=== PATIENT | female | born 1965 | race Two or more races ===

== ENCOUNTER 2020-01-01 10:06 | Outpatient (REF) | payer MEDICAID, SELFPAY | END 2020-01-01 10:07 | disposition home or self-care (01) | LOC: HO.LAB 10:06 | PROVIDERS: PCP Internal Medicine; Referring Provider Internal Medicine; Visit Provider Obstetrics & Gynecology | DX: N95.0 Postmenopausal bleeding (principal) | CPT/HCPCS: 81025; 88305 ==

== ENCOUNTER 2020-03-11 13:32 | Outpatient (REF) | payer MEDICAID, SELFPAY ==
--- NOTE | 2020-03-11 13:36 | US_ITS ---
EXAMINATION: US PELVIC COMPLETE US TRANSVAGINAL CLINICAL INFORMATION: Complex ovarian cyst. COMPARISON: None TECHNIQUE: Transabdominal and transvaginal ultrasound of the pelvis is performed. FINDINGS: The uterus is anteverted and anteflexed measuring 12.1 cm in length, 5.7 cm in AP, and 5.6 cm in transverse dimension. Endometrial thickness measures 0.9 cm. The uterus is slightly heterogenous but no focal lesion seen. There are small nabothian cysts seen in the cervix. The right ovary measures 2.2 x 3.2 x 1.4 cm and volume 5.2 mL. The left ovary measures 3.8 x 3.5 x 1.7 cm and volume 11.9 mL. There is a small anechoic cyst measuring 3.6 x 1.9 x 2.9 cm. There is an echogenic foci measuring 0.29 cm. There is no free fluid in the cul-de-sac. US/US transvaginal IMPRESSION: Heterogenous-appearing uterus with no focal lesion seen. Small echogenic foci and a small cyst left ovary. The right ovary is unremarkable. Several nabothian cysts in the cervix.
--- NOTE | 2020-03-11 13:36 | US_ITS ---
EXAMINATION: US PELVIC COMPLETE US TRANSVAGINAL CLINICAL INFORMATION: Complex ovarian cyst. COMPARISON: None TECHNIQUE: Transabdominal and transvaginal ultrasound of the pelvis is performed. FINDINGS: The uterus is anteverted and anteflexed measuring 12.1 cm in length, 5.7 cm in AP, and 5.6 cm in transverse dimension. Endometrial thickness measures 0.9 cm. The uterus is slightly heterogenous but no focal lesion seen. There are small nabothian cysts seen in the cervix. The right ovary measures 2.2 x 3.2 x 1.4 cm and volume 5.2 mL. The left ovary measures 3.8 x 3.5 x 1.7 cm and volume 11.9 mL. There is a small anechoic cyst measuring 3.6 x 1.9 x 2.9 cm. There is an echogenic foci measuring 0.29 cm. There is no free fluid in the cul-de-sac. US/US pelvic complete IMPRESSION: Heterogenous-appearing uterus with no focal lesion seen. Small echogenic foci and a small cyst left ovary. The right ovary is unremarkable. Several nabothian cysts in the cervix.
== END 2020-03-11 13:33 | disposition home or self-care (01) ==
LOC: HO.US 13:32
PROVIDERS: Visit Provider Obstetrics & Gynecology
DX: N83.299 Other ovarian cyst, unspecified side (principal)
CPT/HCPCS: 76830; 76856

== ENCOUNTER → 2020-04-07 12:14 | Outpatient (BNVA) | payer MEDICAID, SELFPAY | PROVIDERS: Visit Provider Obstetrics & Gynecology ==

== ENCOUNTER 2020-06-16 10:36 | Emergency (ER) | payer MEDICAID, SELFPAY ==
[2020-06-16 11:17] VITALS: BP 158/80; PULSE 72; RESP 18; TEMP 36.6; O2SAT 99; BMI 30.4
[2020-06-16 12:01] LABS: MANUAL DIFF FLAG NO
[2020-06-16 12:03] LABS: Basophils Percent Auto 0.5 % (0-2); Eosinophils Absolute Auto 0.1 X10*3/uL (0.0-0.4); Eosinophils Percent Auto 2.5 % (0-4); Hematocrit 40.6 % (37-47); Hemoglobin 12.4 g/dl (12.0-16.0); Imm Gran Abs Auto 0.01 X10*3/uL (0.00-0.03); Imm Gran Pct Auto 0.2 % (0.0-0.4); Lymphocytes Absolute Auto 1.8 X10*3/uL (1.2-4.9); Lymphocytes Percent Auto 32.3 % (20-40); Mean Corpuscular HGB Conc 30.5 g/dl (31.0-35.0); Mean Corpuscular Hemoglobin 24.4 pg (27.0-33.0); Mean Corpuscular Volume 79.9 fL (80-98); Mean Platelet Volume 10.5 fL (9.4-12.3); Monocytes Absolute Auto 0.4 X10*3/uL (0.1-1.2); Monocytes Percent Auto 7.7 % (2-11); Neutrophils Absolute Auto 3.2 X10*3/uL (2.0-8.3); Neutrophils Percent Auto 56.8 % (45-73); Platelet Count 209 X10*3/uL (160-400); Red Blood Count 5.08 X10*6/uL (4.20-5.50); Red Cell Distribution Width 22.5 % (11.0-16.0); White Blood Count 5.7 X10*3/uL (4.8-10.8)
[2020-06-16 12:39] LABS: Alanine Aminotransferase 27 U/L (0-31); Albumin Level 3.9 g/dL (3.5-5.0); Alkaline Phosphatase 90 U/L (39-117); Anion Gap 11 (12-20); Aspartate Amino Transferase 30 U/L (5-31); Bilirubin Total 0.5 mg/dL (0.0-1.0); Blood Urea Nitrogen 14 mg/dL (9-16); Calcium 9.3 mg/dL (8.4-10.2); Carbon Dioxide 27 mmol/L (22-29); Chloride 106 mmol/L (96-108); Creatinine Clr Calc Pharmacy 78.5; Estimated Glomerular Filt Rate > 60; Glucose Random 103 mg/dL (60-115); Potassium 4.7 mmol/L (3.3-5.1); Sodium 139 mmol/L (135-145); Total Protein 6.7 g/dL (6.5-8.0)
[2020-06-16 12:51] LABS: Glucose Urine UA NEG (NEG); Leukocyte Esterase Urine NEG (NEG); Nitrite Urine NEG (NEG); PH 5.5 (5.0-8.0); Specific Gravity - Urine >= 1.030 (1.005-1.025); Urine Blood NEG (NEG); Urine Ketones NEG (NEG); Urine Protein NEG (NEG-TRACE)
[2020-06-16 12:55] LABS: Color Urine YELLOW
[2020-06-16 12:56] LABS: Appearance Urine CLEAR
--- NOTE | 2020-06-16 14:31 | ED.ABDPAIN ---
HPI - Abdominal Pain General Chief Complaint: Abdominal Pain Stated Complaint: lower abd pain Time Seen by Provider: 06/16/20 14:28 Source: patient, family and educational interpreter Mode of arrival: ambulatory Limitations: no limitations History of Present Illness HPI narrative: 54 yo female with arthritis and known ovarian cyst as well as uterine prolapse notes the prolapse has worsened recently and she has more pelvic pressure MD elicited complaint: other (pelvic pressure) Pertinent past history: none Onset (ago): month(s) Pain Consistency: intermittent Location: pelvis Severity: mild Quality: aching and fullness Radiation: none Migration to: no migration Exacerbating factors: bowel movement Relieving factors: nothing Associated symptoms: denies other symptoms Related Data Home Medications Medication Instructions Recorded Confirmed amitriptyline 25 mg tablet 25 mg PO BEDTIME 01/01/20 01/09/20 fluticasone propionate 50 1 spray INTRANASAL BID 01/01/20 01/09/20 mcg/actuation nasal spray,suspension loratadine 10 mg capsule 10 mg PO DAILY 01/01/20 01/09/20 multivitamin 1 cap PO DAILY 01/01/20 01/09/20 Previous Rx's Medication Instructions Recorded hydrocodone-acetaminophen 1 tab PO Q6H PRN #12 tab 06/16/20 ondansetron 4 mg PO Q8H PRN #20 tab 06/16/20 Allergies Allergy/AdvReac Type Severity Reaction Status Date / Time tramadol AdvReac Unknown vomiting Verified 01/09/20 12:06 Seasonal Allergeries Allergy Unknown sneezing Uncoded 01/09/20 12:06 Review of Systems Review of Systems Constitutional : No Weight loss, No Fever, No Chills ENT/Mouth : No sore throat, No Rhinorrhea Eyes: No Swelling, No Redness Cardiovascular : No Chest Pain, No SOB, NoEdema Respiratory : No Cough, No Sputum, No Wheezing Gastrointestinal : no Nausea, no Vomiting, no Diarrhea, no abdominal Pain, No Hematochezia, No Melena Genitourinary : No Dysuria, No Urinary Frequency, No Hematuria, No Urgency, pos vaginal pressure, pos bump felt in vaginal area Musculoskeletal : No joint pain, No Myalgias, No Joint Swelling Skin : No Skin Lesions, No rash Neuro : No Weakness, No Numbness, No Dizziness, No Headache Psych : No Anxiety/Panic, No Depression All other systems reviewed and are negative. Physical Exam Vital Signs: Vital Signs: Last Vital Signs Temp 97.8 F 06/16/20 11:17 Pulse 72 06/16/20 11:17 Resp 18 06/16/20 11:17 BP 158/80 H 06/16/20 11:17 Pulse Ox 99 06/16/20 11:17 Body Mass Index 30.4 Appearance: Alert. Oriented X3. No acute distress. Eyes: Pupils equal, round and reactive to light. ENT: Pharynx normal. Neck: Normal inspection. Neck supple. CVS: Normal heart rate and rhythm. Pulses normal. Respiratory: No respiratory distress. Breath sounds normal. Abdomen: Soft and nontender. : uterine prolapse noted mild with coughing and pressure Skin: Skin warm and dry. Normal skin color. Normal skin turgor. Extremities: No lower extremity edema. No calf ttp Neuro: Oriented X 3. No motor deficit. No sensory deficit. MDM - Abdominal Pain MDM Narrative Medical decision making narrative: 54 yo female with lower vaginal pressure from known uterine prolapse, c/o dysuria, labs and UA negative, exam only prolapse noted when she coughs or uses pressure, abdomen is benign - pain control and refer to OBGYN Lab Data Result diagrams: 06/16/20 11:57 06/16/20 11:57 Labs: Lab Results 06/16/20 06/16/20 06/16/20 Range/Units 11:57 11:57 11:57 WBC 5.7 (4.8-10.8) X10*3/uL RBC 5.08 (4.20-5.50) X10*6/uL Hgb 12.4 (12.0-16.0) g/dl Hct 40.6 (37-47) % MCV 79.9 L (80-98) fL MCH 24.4 L (27.0-33.0) pg MCHC 30.5 L (31.0-35.0) g/dl RDW 22.5 H (11.0-16.0) % Plt Count 209 (160-400) X10*3/uL MPV 10.5 (9.4-12.3) fL Immature Gran % (Auto) 0.2 (0.0-0.4) % Neut % (Auto) 56.8 (45-73) % Lymph % (Auto) 32.3 (20-40) % [place] % (Auto) 7.7 (2-11) % Eos % (Auto) 2.5 (0-4) % Baso % (Auto) 0.5 (0-2) % Lymph # (Auto) 1.8 (1.2-4.9) X10*3/uL [place] # (Auto) 0.4 (0.1-1.2) X10*3/uL Eos # (Auto) 0.1 (0.0-0.4) X10*3/uL Baso # (Auto) 0.0 (0.0-0.2) X10*3/uL Abs Immat Gran (auto) 0.01 (0.00-0.03) X10*3/uL Absolute Neuts (auto) 3.2 (2.0-8.3) X10*3/uL Absolute Nucleated RBC 0.000 (0.0-0.012) X10*3/uL Nucleated RBC % (auto) 0.0 (0.0-0.2) /100WBC Hold Blue Top SEE NOTE Sodium 139 (135-145) mmol/L Potassium 4.7 (3.3-5.1) mmol/L Chloride 106 (96-108) mmol/L Carbon Dioxide 27 (22-29) mmol/L Anion Gap 11 L (12-20) BUN 14 (9-16) mg/dL Creatinine 0.83 (0.5-1.4) mg/dL Estim Creat Clear Calc 78.5 Estimated GFR > 60 Random Glucose 103 (60-115) mg/dL Calcium 9.3 (8.4-10.2) mg/dL Total Bilirubin 0.5 (0.0-1.0) mg/dL AST 30 (5-31) U/L ALT 27 (0-31) U/L Alkaline Phosphatase 90 (39-117) U/L Total Protein 6.7 (6.5-8.0) g/dL Albumin 3.9 (3.5-5.0) g/dL Urine Color Urine Appearance Urine pH (5.0-8.0) Ur Specific [place] (1.005-1.025) Urine Protein (NEG-TRACE) MG/DL Urine Glucose (UA) (NEG) MG/DL Urine Ketones (NEG) MG/DL Urine Blood (NEG) Urine Nitrite (NEG) Ur Leukocyte Esterase (NEG) 06/16/20 Range/Units 12:20 WBC (4.8-10.8) X10*3/uL RBC (4.20-5.50) X10*6/uL Hgb (12.0-16.0) g/dl Hct (37-47) % MCV (80-98) fL MCH (27.0-33.0) pg MCHC (31.0-35.0) g/dl RDW (11.0-16.0) % Plt Count (160-400) X10*3/uL MPV (9.4-12.3) fL Immature Gran % (Auto) (0.0-0.4) % Neut % (Auto) (45-73) % Lymph % (Auto) (20-40) % [place] % (Auto) (2-11) % Eos % (Auto) (0-4) % Baso % (Auto) (0-2) % Lymph # (Auto) (1.2-4.9) X10*3/uL [place] # (Auto) (0.1-1.2) X10*3/uL Eos # (Auto) (0.0-0.4) X10*3/uL Baso # (Auto) (0.0-0.2) X10*3/uL Abs Immat Gran (auto) (0.00-0.03) X10*3/uL Absolute Neuts (auto) (2.0-8.3) X10*3/uL Absolute Nucleated RBC (0.0-0.012) X10*3/uL Nucleated RBC % (auto) (0.0-0.2) /100WBC Hold Blue Top Sodium (135-145) mmol/L Potassium (3.3-5.1) mmol/L Chloride (96-108) mmol/L Carbon Dioxide (22-29) mmol/L Anion Gap (12-20) BUN (9-16) mg/dL Creatinine (0.5-1.4) mg/dL Estim Creat Clear Calc Estimated GFR Random Glucose (60-115) mg/dL Calcium (8.4-10.2) mg/dL Total Bilirubin (0.0-1.0) mg/dL AST (5-31) U/L ALT (0-31) U/L Alkaline Phosphatase (39-117) U/L Total Protein (6.5-8.0) g/dL Albumin (3.5-5.0) g/dL Urine Color YELLOW Urine Appearance CLEAR Urine pH 5.5 (5.0-8.0) Ur Specific [place] >= 1.030 H (1.005-1.025) Urine Protein NEG (NEG-TRACE) MG/DL Urine Glucose (UA) NEG (NEG) MG/DL Urine Ketones NEG (NEG) MG/DL Urine Blood NEG (NEG) Urine Nitrite NEG (NEG) Ur Leukocyte Esterase NEG (NEG) Discharge Plan Discharge Clinical Impression: Uterine prolapse Patient Disposition: Home, Self-Care Instructions: Uterine Prolapse (ED) Additional Instructions: return to ED for any worsening symptoms or concerns PLEASE CALL DR. RODRIGEZ Prescriptions: New hydrocodone-acetaminophen 5-325 mg tablet 1 tab PO Q6H PRN (Reason: pain) Qty: 12 RF: 0 ondansetron 4 mg tablet,disintegrating 4 mg PO Q8H PRN (Reason: nausea and vomiting) Qty: 20 RF: 0 No Action multivitamin Capsule 1 cap PO DAILY RF: 0 fluticasone propionate 50 mcg/actuation spray,suspension 1 spray intranasal BID RF: 0 loratadine 10 mg capsule 10 mg PO DAILY RF: 0 amitriptyline 25 mg tablet 25 mg PO BEDTIME RF: 0 Referrals: Tj Rodrigez MD [Physician] - 2 days PMF Past Medical History Attestation statement: The following information was validated with the patient. Medical History Allergic rhinitis Joint pain Migraines Vitamin D deficiency Family History Family History Mother Colon cancer Social History Social History Alcohol intake: never Advance Directives: Yes Advance Directives Information Provided: Yes Advance Directives on File: No Sexual orientation: Straight/Heterosexual Gender identity: female
== END 2020-06-16 15:03 | disposition home or self-care (01) ==
PROVIDERS: Emergency Provider Emergency Medicine; PCP Internal Medicine
DX: N81.4 Uterovaginal prolapse, unspecified (principal); R10.2 Pelvic and perineal pain
CPT/HCPCS: 36415; 80053; 81003; 85025; 99283

== ENCOUNTER 2020-07-11 13:01 | Outpatient (REF) | payer MEDICAID, SELFPAY ==
--- NOTE | ~2020-07-11 | MM_ITS ---
EXAMINATION: MM SCREENING DIGITAL BREAST TOMOSYNTHESIS, BILATERAL CLINICAL INFORMATION: Screening. Asymptomatic. Ultrasound-guided left axillary node biopsy 01/11/2019, including negative flow cytometry (no clonal B-cell or atypical T-cell population). The lifetime risk of breast cancer based on the Tyrer-Cuzick Model is 7%. COMPARISON: Mammography: 12/29/2018, 06/29/2017, 05/13/2016, 12/12/2014, 01/03/2013 TECHNIQUE: Digital breast tomosynthesis is performed in both the craniocaudal and mediolateral oblique views along with computer-aided detection (CAD). Synthesized 2D images are generated from the tomosynthesis. FINDINGS: There are scattered areas of fibroglandular density (ACR BI-RADS breast composition Category b). There are no significant masses, abnormal calcifications, or other abnormalities. There is a biopsy clip marker overlying stable prominent left axillary node. MM/MM tomosynthesis screening BI IMPRESSION: No significant changes from prior exams. ASSESSMENT: BI-RADS 2: Benign RECOMMENDATION: Routine annual mammography screening. This patient's information was entered into a reminder system with a target due date for their next mammogram.
== END 2020-07-11 13:02 | disposition home or self-care (01) ==
LOC: HO.MAMMO 13:01
PROVIDERS: PCP Internal Medicine; Visit Provider Internal Medicine
DX: Z12.31 Encounter for screening mammogram for malignant neoplasm of breast (principal)
CPT/HCPCS: 77063; 77067

== ENCOUNTER 2020-07-23 10:55 | Outpatient (REF) | payer MEDICAID, SELFPAY ==
[2020-07-23 11:58] LABS: MANUAL DIFF FLAG NO
[2020-07-23 12:04] LABS: Basophils Percent Auto 0.8 % (0-2); Eosinophils Absolute Auto 0.1 X10*3/uL (0.0-0.4); Eosinophils Percent Auto 2.7 % (0-4); Hemoglobin 12.1 g/dl (12.0-16.0); Imm Gran Abs Auto 0.01 X10*3/uL (0.00-0.03); Imm Gran Pct Auto 0.2 % (0.0-0.4); Lymphocytes Absolute Auto 1.7 X10*3/uL (1.2-4.9); Lymphocytes Percent Auto 36.4 % (20-40); Mean Corpuscular Hemoglobin 25.6 pg (27.0-33.0); Mean Corpuscular Volume 82.5 fL (80-98); Mean Platelet Volume 11.5 fL (9.4-12.3); Monocytes Absolute Auto 0.4 X10*3/uL (0.1-1.2); Monocytes Percent Auto 7.4 % (2-11); Neutrophils Absolute Auto 2.5 X10*3/uL (2.0-8.3); Neutrophils Percent Auto 52.5 % (45-73); Platelet Count 176 X10*3/uL (160-400); Red Blood Count 4.73 X10*6/uL (4.20-5.50); Red Cell Distribution Width 18.7 % (11.0-16.0); White Blood Count 4.8 X10*3/uL (4.8-10.8)
[2020-07-23 12:25] LABS: Alanine Aminotransferase 30 U/L (0-31); Albumin Level 3.8 g/dL (3.5-5.0); Alkaline Phosphatase 90 U/L (39-117); Anion Gap 10 (12-20); Aspartate Amino Transferase 30 U/L (5-31); Bilirubin Total 0.5 mg/dL (0.0-1.0); Blood Urea Nitrogen 12 mg/dL (9-16); Calcium 9.1 mg/dL (8.4-10.2); Carbon Dioxide 27 mmol/L (22-29); Chloride 105 mmol/L (96-108); Cholesterol 123 mg/dL; Estimated Glomerular Filt Rate > 60; Glucose Random 93 mg/dL (60-115); HDL Cholesterol 42 mg/dL; LDL Cholesterol Calculated 67 mg/dl; Potassium 4.5 mmol/L (3.3-5.1); Sodium 137 mmol/L (135-145); Total Protein 6.6 g/dL (6.5-8.0); Triglycerides 71 mg/dL
== END 2020-07-23 10:56 | disposition home or self-care (01) ==
LOC: HO.LAB 10:55
PROVIDERS: PCP Internal Medicine; Visit Provider Internal Medicine
DX: E78.00 Pure hypercholesterolemia, unspecified (principal); F32.89 Other specified depressive episodes; G43.719 Chronic migraine without aura, intractable, without status migrainosus; I10 Essential (primary) hypertension
CPT/HCPCS: 36415; 80053; 80061; 85025

== ENCOUNTER → 2020-08-05 13:56 | Outpatient (BNVA) | payer MEDICAID, SELFPAY | PROVIDERS: Visit Provider Obstetrics & Gynecology | DX: R32 Unspecified urinary incontinence (principal) | CPT/HCPCS: 99212 ==

== ENCOUNTER 2021-01-06 14:35 | Outpatient (REF) | payer MEDICAID, SELFPAY | END 2021-01-06 14:36 | disposition home or self-care (01) | LOC: HO.LAB 14:35 | PROVIDERS: Visit Provider Obstetrics & Gynecology | DX: N95.0 Postmenopausal bleeding (principal) | CPT/HCPCS: 58100; 88305; 99212 ==

== ENCOUNTER 2021-01-19 14:18 | Outpatient (REF) | payer MEDICAID, SELFPAY ==
--- NOTE | ~2021-01-19 | US_ITS ---
EXAMINATION: US PELVIS CLINICAL INFORMATION: Postmenopausal bleeding. COMPARISON: None. TECHNIQUE: Ultrasound of the pelvis is performed using both transabdominal and transvaginal transducers along with Doppler. Transvaginal imaging is performed due to inadequate visualization transabdominally. FINDINGS: Uterus: The uterus is anteverted, anteflexed measuring 10.6 cm in length, 5.4 cm in AP and 6.0 cm in transverse dimension. It is mildly heterogeneous The double wall endometrial thickness is 0.8 mm. The uterus is normal size but heterogeneous in appearance. There are 2 hypoechoic lesions in the anterior uterus. The upper body lesion measures 0.8 x 0.4 x 1.0 cm. Midbody lesion measures 0.7 0.5 x 0.5 cm. There are multiple anechoic nabothian cysts seen. Adnexa: Both ovaries are visualized. There is normal color flow to the adnexa. There is no ovarian torsion. There is no pelvic ascites or fluid collection. Right ovary measures 4.0 x 2.2 x 3.2 cm and volume 4.7 mL. There is an anechoic cyst measuring 3.0 x 2.0 x 2.6 cm. Left ovary measures 2.8 x 1.0 x 2.1 cm and volume 2.1 mL. There are multiple echogenic calcification seen. There is no free fluid in the cul-de-sac. US/US pelvic and transvaginal IMPRESSION: Multiple echogenic calcifications seen with the largest measuring 0.2 x 0.2 x 0.2 cm. There are 2 small uterine fibroids. Multiple nabothian cysts seen. Right ovarian simple cyst. Multiple small echogenic calcifications in left ovary.
== END 2021-01-19 14:19 | disposition home or self-care (01) ==
LOC: HO.US 14:18
PROVIDERS: PCP Internal Medicine; Visit Provider Obstetrics & Gynecology
DX: N95.0 Postmenopausal bleeding (principal)
CPT/HCPCS: 76830; 76856

== ENCOUNTER → 2021-01-22 10:47 | Outpatient (BNVA) | payer MEDICAID, SELFPAY | PROVIDERS: PCP Internal Medicine; Visit Provider Obstetrics & Gynecology | DX: N95.0 Postmenopausal bleeding (principal) | CPT/HCPCS: 99212 ==

== ENCOUNTER → 2021-03-10 12:54 | Outpatient (BNVA) | payer MEDICAID, SELFPAY | PROVIDERS: PCP Internal Medicine; Visit Provider Obstetrics & Gynecology | DX: N95.0 Postmenopausal bleeding (principal) | CPT/HCPCS: 99212 ==

== ENCOUNTER 2021-03-27 08:09 | Day surgery (SDC) | payer MEDICAID, SELFPAY ==
[2021-03-19 13:21] VITALS: BMI 31.2
--- NOTE | 2021-03-25 14:51 | P.CONAN_ITS ---
Documented by User: Josefina Stern NP 03/25/21 14:52 HPI - Anesthesia Eval Consult details Narrative: 55yo F for D&C Hysteroscopy, Possible Polypectomy, Possible Myomectomy PMFSH Active Problems Active Problems: All Active Problems (Updated 03/19/21 @ 13:25 by Imelda Mcleod, TRIPP) Postmenopausal bleeding (Acute) Complex ovarian cyst (Acute) Cystocele (Acute) Urine incontinence (Acute) Past Medical History Medical History Allergic rhinitis [place] HTN (hypertension) Joint pain Migraines Restless leg Vitamin D deficiency Family History Family History Mother Colon cancer Surgical History Surgical History History of nasal surgery Hx of colonoscopy Hx of varicose vein ligation and stripping Social History Social History Alcohol intake: never Advance Directives: No Advance Directives Information Provided: No Advance Directives on File: No Sexual orientation: Straight/Heterosexual Gender identity: Female Meds Allergies Allergy/AdvReac Type Severity Reaction Status Date / Time tramadol AdvReac Unknown vomiting Verified 03/19/21 13:16 Seasonal Allergeries Allergy Unknown sneezing Uncoded 03/19/21 13:16 Home Medications Medication Instructions Recorded Confirmed Last Taken Type amitriptyline 25 mg tablet 25 mg PO BEDTIME 01/01/20 03/19/21 Unknown History fluticasone propionate 50 1 spray INTRANASAL BID 01/01/20 03/19/21 Unknown History mcg/actuation nasal spray,suspension loratadine 10 mg capsule 10 mg PO DAILY 01/01/20 03/19/21 Unknown History multivitamin 1 cap PO DAILY 01/01/20 03/19/21 Unknown History atorvastatin 40 mg tablet 1 tab PO DAILY 03/19/21 03/19/21 Unknown History losartan 100 mg tablet 1 tab PO DAILY 03/19/21 03/19/21 Unknown History sertraline 100 mg tablet 1 tab PO DAILY 03/19/21 03/19/21 Unknown History Exam Exam Date and Time: March 25, 2021 145 Height,Weight and Vital Signs: Height 5 ft 4 in Weight 82.554 kg Assessment and Plan Assessment Anesthesia Assessment: Chart Reviewed Documented by User: Karolina Stoll MD 03/27/21 08:48 [facility] Past Medical History Medical History Allergic rhinitis Deaf HTN (hypertension) Joint pain Migraines Restless leg Vitamin D deficiency Family History Family History Mother Colon cancer Family history of problems with anesthesia: No Surgical History Surgical History History of nasal surgery Hx of colonoscopy Hx of varicose vein ligation and stripping History of Problems with Anesthesia: No Social History Social History Alcohol intake: never Advance Directives: No Advance Directives Information Provided: No Advance Directives on File: No Sexual orientation: Straight/Heterosexual Gender identity: Female Meds Allergies Allergy/AdvReac Type Severity Reaction Status Date / Time tramadol AdvReac Unknown vomiting Verified 03/19/21 13:16 Seasonal Allergeries Allergy Unknown sneezing Uncoded 03/19/21 13:16 Home Medications Medication Instructions Recorded Confirmed Last Taken Type amitriptyline 25 mg tablet 25 mg PO BEDTIME 01/01/20 03/19/21 Unknown History fluticasone propionate 50 1 spray INTRANASAL BID 01/01/20 03/19/21 Unknown History mcg/actuation nasal spray,suspension loratadine 10 mg capsule 10 mg PO DAILY 01/01/20 03/19/21 Unknown History multivitamin 1 cap PO DAILY 01/01/20 03/19/21 Unknown History atorvastatin 40 mg tablet 1 tab PO DAILY 03/19/21 03/19/21 Unknown History losartan 100 mg tablet 1 tab PO DAILY 03/19/21 03/19/21 Unknown History sertraline 100 mg tablet 1 tab PO DAILY 03/19/21 03/19/21 Unknown History Exam Height,Weight and Vital Signs: Height 5 ft 4 in Weight 82.554 kg Vital Signs Temp Pulse Resp BP Pulse Ox 03/27/21 08:37 97.4 F 79 16 145/74 H 98 Airway Mallampati Class: II TM Dist: >3cm Neck ROM: Full Partial: Upper Heart: RRR Lungs: CTAB Assessment and Plan Assessment Anesthesia Assessment: Anesthesia Plan Discussed Final Anesthetic Review Family History of Problems with Anesthesia: No History of Problems with Anesthesia: No NPO: No (Chewing gum O/A 45 minutes ago) ASA Class: II Final Preanesthetic Review: No Changes in Pt Med Stat, Meds/Allgs Chart Reviewed, Consent Obtained/Reviewed and Anes Risks/Benef Reviewed Patient Risk: Low Procedure Risk: Low Assessment/Block/Sedation in SS: Assess/Block/Sedation-SS Anesthetic Plan Anesthetic Plan: GA and MAC: Disposition: Standard PACU
[2021-03-27 08:37] VITALS: BP 145/74; PULSE 79; RESP 16; TEMP 36.3; O2SAT 98
--- NOTE | 2021-03-27 08:51 | MHC.SHP ---
Pre-Procedural Eval Section A Date of Service: 03/27/21 The patient is an INPATIENT: No Changes since office visit: No Cold of Flu in the past 2 weeks, No New Medical Problems, No Changes in Medication and No Patient answered all questions The History & Physical has been completed within 30 days and I have reviewed it.: Yes Section B Chief Complaint: PMB Allergies: Allergies Allergy/AdvReac Type Severity Reaction Status Date / Time tramadol AdvReac Unknown vomiting Verified 03/19/21 13:16 Seasonal Allergeries Allergy Unknown sneezing Uncoded 03/19/21 13:16 Plan Diagnosis/Plan: Unchanged I have reviewed the history and physical and performed a pertinent physical examination on my patient. No changes have occurred unless specified.
[2021-03-27] MEDS: Lactated Ringers 1,000 ML 100 ML IVCONT (08:52)
--- NOTE | 2021-03-27 09:19 | P.BOP_ITS ---
Brief Operative Note Date of Service: 03/27/21 Pre-op diagnosis: post menopausal bleeding Post-op diagnosis: same ( same plus endocervical polyp) Procedure: Hysteroscopy D&C, Polypectomy Surgeon: Tj Rodrigez MD Anesthesia: MAC Was an Room Service Supervisor used for this Procedure?: No Estimated blood loss (mL): 0 Pathology: other (Endometrial Scrapping. endocervical Polyp) Condition: stable Disposition: PACU
--- NOTE | 2021-03-27 09:20 | P.OP_ITS ---
Operative Note Operative Note Date of Service: 03/27/21 Narrative: Preop Diagnosis: postmenopausal bleeding Operation: Diagnostic Hysteroscopy, Dilataion & Curettage and polypectomy Post Op Diagnosis: normal endometrial cavity,endocervical Polyp QBL: Minimal Anesthesia: MAC Surgeon: Tj Rodrigez MD [employer] Farmworker: None Complication: None Pathology: Endometrial Scrapings, endocervical polyp Procedure: The patient was put in the dorsal lithotomy position, scrubbed, and draped in the usual manner. A sterile speculum was inserted in the patient's vagina. The anterior lip of the cervix was grasped with a single tooth tenaculum. The cervix was dilated up to 5 mm, then the scope was inserted in the patient's uterus. Inspection revealed normal endometrial cavity and an endocervical polyp. Using the handheld cautery endocervical polypectomy done with no complications. Endometrial scrapings was done with moderate amount of tissues retrieved. At the end of the procedure, all instruments were taken out of the patient uterine and vaginal cavity. The single tooth tenaculum was remov ed and homeostasis was assured using pressure,. The patient tolerated the procedure well and was transferred to the PACU in a stable condition.
[2021-03-27 09:30] VITALS: BP 99/62; PULSE 82; RESP 16; TEMP 36.5; O2SAT 99
[2021-03-27 09:35] VITALS: BP 107/63; PULSE 74; RESP 16; O2SAT 99
[2021-03-27 09:40] VITALS: BP 105/58; PULSE 71; RESP 16; O2SAT 98
[2021-03-27 09:45] VITALS: BP 100/58; PULSE 72; RESP 16; O2SAT 96
[2021-03-27 10:00] VITALS: BP 117/69; PULSE 77; RESP 16; TEMP 36.1; O2SAT 95
== END 2021-03-27 10:35 | disposition home or self-care (01) ==
PROVIDERS: Visit Provider Obstetrics & Gynecology
PROC: 0UDB8ZZ Extraction of Endometrium, Via Natural or Artificial Opening Endoscopic (ICD-10-PCS; CPT 58558; principal; 2021-03-27 09:00)
DX: N95.0 Postmenopausal bleeding (principal); N84.1 Polyp of cervix uteri; J30.2 Other seasonal allergic rhinitis; E55.9 Vitamin D deficiency, unspecified; G43.909 Migraine, unspecified, not intractable, without status migrainosus; M25.50 Pain in unspecified joint; Z79.51 Long term (current) use of inhaled steroids; Z79.899 Other long term (current) drug therapy; Z88.8 Allergy status to other drugs, medicaments and biological substances
CPT/HCPCS: 58558; 88305; J1885; J2250; J2405; J2765; J3010

== ENCOUNTER → 2021-06-08 15:57 | Outpatient (BNVA) | payer MEDICAID, SELFPAY | PROVIDERS: Visit Provider Obstetrics & Gynecology | DX: N95.0 Postmenopausal bleeding (principal) | CPT/HCPCS: Q3014 ==

== ENCOUNTER → 2021-07-14 10:14 | Outpatient (BNVA) | payer MEDICAID, SELFPAY | PROVIDERS: PCP Internal Medicine; Visit Provider Obstetrics & Gynecology | DX: Z01.419 Encounter for gynecological examination (general) (routine) without abnormal findings (principal) ==

== ENCOUNTER 2021-07-16 15:44 | Outpatient (REF) | payer MEDICAID, SELFPAY ==
--- NOTE | ~2021-07-16 | MM_ITS ---
EXAMINATION: MM SCREENING DIGITAL BREAST TOMOSYNTHESIS, BILATERAL CLINICAL INFORMATION: Screening. Asymptomatic. The lifetime risk of breast cancer based on the Tyrer-Cuzick Model is 2.3%. COMPARISON: Mammography: July 11, 2020 and studies dating back to January 03, 2013 TECHNIQUE: Digital breast tomosynthesis is performed in both the craniocaudal and mediolateral oblique views along with computer-aided detection (CAD). Synthesized 2D images are generated from the tomosynthesis. FINDINGS: There are scattered areas of fibroglandular density (ACR BI-RADS breast composition Category b). There are no significant masses, abnormal calcifications, or other abnormalities. MM/MM tomosynthesis screening BI IMPRESSION: There are no significant changes from prior study. ASSESSMENT: BI-RADS 1: Negative RECOMMENDATION: Routine annual mammography screening. This patient's information was entered into a reminder system with a target due date for their next mammogram.
== END 2021-07-16 15:45 | disposition home or self-care (01) ==
LOC: HO.MAMMO 15:44
PROVIDERS: Visit Provider Internal Medicine
DX: Z12.31 Encounter for screening mammogram for malignant neoplasm of breast (principal)
CPT/HCPCS: 77063; 77067

== ENCOUNTER 2021-09-08 11:54 | Outpatient (REF) | payer MEDICAID, SELFPAY ==
[2021-09-08 12:02] LABS: MANUAL DIFF FLAG NO
[2021-09-08 13:05] LABS: Basophils Absolute Auto 0.1 X10*3/uL (0.0-0.2); Basophils Percent Auto 0.9 % (0-2); Eosinophils Absolute Auto 0.2 X10*3/uL (0.0-0.4); Hematocrit 39.9 % (37.0-47.0); Hemoglobin 13.2 g/dl (12.0-16.0); Imm Gran Abs Auto 0.01 X10*3/uL (0.00-0.03); Imm Gran Pct Auto 0.2 % (0.0-0.4); Lymphocytes Absolute Auto 2.5 X10*3/uL (1.2-4.9); Lymphocytes Percent Auto 44.3 % (20-40); Mean Corpuscular HGB Conc 33.1 g/dl (31.0-35.0); Mean Corpuscular Hemoglobin 30.1 pg (27.0-33.0); Mean Corpuscular Volume 90.9 fL (80.0-98.0); Mean Platelet Volume 10.8 fL (9.4-12.3); Monocytes Absolute Auto 0.4 X10*3/uL (0.1-1.2); Monocytes Percent Auto 6.7 % (2-11); Neutrophils Absolute Auto 2.5 x10*3/uL (2.0-8.3); Neutrophils Percent Auto 44.9 % (45-73); Platelet Count 222 X10*3/uL (160-400); Red Blood Count 4.39 X10*6/uL (4.20-5.50); Red Cell Distribution Width 13.7 % (11.0-16.0); White Blood Count 5.7 X10*3/uL (4.8-10.8)
[2021-09-08 14:46] LABS: Alanine Aminotransferase 31 U/L (0-31); Albumin Level 4.2 g/dL (3.5-5.0); Alkaline Phosphatase 93 U/L (39-117); Anion Gap 10 (12-20); Aspartate Amino Transferase 30 U/L (5-31); Bilirubin Total 0.4 mg/dL (0.0-1.0); Blood Urea Nitrogen 13 mg/dL (9-16); Calcium 9.8 mg/dL (8.4-10.2); Carbon Dioxide 29 mmol/L (22-29); Chloride 104 mmol/L (96-108); Cholesterol 196 mg/dL; Estimated Glomerular Filt Rate > 60; Glucose Random 104 mg/dL (60-115); HDL Cholesterol 39 mg/dL; LDL Cholesterol Calculated 115 mg/dl; Potassium 4.3 mmol/L (3.3-5.1); Sodium 139 mmol/L (135-145); Total Protein 7.2 g/dL (6.5-8.0); Triglycerides 213 mg/dL
== END 2021-09-08 11:55 | disposition home or self-care (01) ==
LOC: HO.LAB 11:54
PROVIDERS: PCP Internal Medicine; Visit Provider Internal Medicine
DX: E78.00 Pure hypercholesterolemia, unspecified (principal); F32.5 Major depressive disorder, single episode, in full remission; I10 Essential (primary) hypertension; M65.332 Trigger finger, left middle finger; M67.432 Ganglion, left wrist
CPT/HCPCS: 36415; 80053; 80061; 85025

== ENCOUNTER → 2021-09-11 13:22 | Outpatient (BNVA) | payer MEDICAID, SELFPAY | PROVIDERS: PCP Internal Medicine; Visit Provider Orthopaedic Surgery | DX: M65.331 Trigger finger, right middle finger (principal) | CPT/HCPCS: 20550; 99202; J1100 ==

== ENCOUNTER 2021-10-09 12:28 | Outpatient (REF) | payer MEDICAID, SELFPAY ==
--- NOTE | ~2021-10-09 | XR_ITS ---
EXAMINATION: XR KNEES, STANDING AP XR KNEE, RIGHT CLINICAL INFORMATION: Right knee pain COMPARISON: Standing AP knees and right knee radiographs 08/21/2018 TECHNIQUE: Standing AP view of both knees is performed along with lateral and axial patella views of the right knee. FINDINGS: Right: Borderline narrowing medial knee joint compartment. No erosive change or subchondral sclerosis or chondrocalcinosis. Suspect trace suprapatellar effusion. Hoffa's fat pad appears normal. No fracture or dislocation or destructive process. Left: Borderline narrowing medial knee joint compartment. No erosive change, subchondral sclerosis, or chondrocalcinosis. XR/XR knee RT 2V IMPRESSION: -Borderline narrowing medial knee joint compartments. -No subchondral sclerosis, erosive change, or chondrocalcinosis. -Suspect trace right effusion.
--- NOTE | ~2021-10-09 | XR_ITS ---
EXAMINATION: XR KNEES, STANDING AP XR KNEE, RIGHT CLINICAL INFORMATION: Right knee pain COMPARISON: Standing AP knees and right knee radiographs 08/21/2018 TECHNIQUE: Standing AP view of both knees is performed along with lateral and axial patella views of the right knee. FINDINGS: Right: Borderline narrowing medial knee joint compartment. No erosive change or subchondral sclerosis or chondrocalcinosis. Suspect trace suprapatellar effusion. Hoffa's fat pad appears normal. No fracture or dislocation or destructive process. Left: Borderline narrowing medial knee joint compartment. No erosive change, subchondral sclerosis, or chondrocalcinosis. XR/XR knee standing BI IMPRESSION: -Borderline narrowing medial knee joint compartments. -No subchondral sclerosis, erosive change, or chondrocalcinosis. -Suspect trace right effusion.
== END 2021-10-09 12:29 | disposition home or self-care (01) ==
LOC: HO.HOSX 12:28
PROVIDERS: Visit Provider Physician Assistant
DX: M17.11 Unilateral primary osteoarthritis, right knee (principal); M25.562 Pain in left knee
CPT/HCPCS: 20610; 73560; 73565; 99212; J1040

== ENCOUNTER 2022-01-14 12:33 | Outpatient (REF) | payer MEDICAID, SELFPAY | END 2022-01-14 12:34 | disposition home or self-care (01) | LOC: HO.HOSX 12:33 | PROVIDERS: Visit Provider Physician Assistant | DX: M17.11 Unilateral primary osteoarthritis, right knee (principal) | CPT/HCPCS: 20610; 99212; J1040 ==

== ENCOUNTER 2022-01-27 06:24 | Outpatient (REF) | payer MEDICAID, SELFPAY ==
--- NOTE | ~2022-01-27 | XR_ITS ---
EXAMINATION: XR HAND, RIGHT CLINICAL INFORMATION: Pain. COMPARISON: None TECHNIQUE: PA, lateral, and oblique views of the right hand. FINDINGS: There is mild loss of PIP and DIP joints with mild periarticular spurring DIP joint second, third and fourth digits. No visible acute fracture, dislocation or subluxation seen. The soft tissues are normal. XR/XR hand RT min 3V IMPRESSION: Mild degenerative changes PIP and DIP joints. No visible acute fracture or dislocation seen.
== END 2022-01-27 06:25 | disposition home or self-care (01) ==
LOC: HO.HOSX 06:24
PROVIDERS: Visit Provider Physician Assistant
DX: M65.331 Trigger finger, right middle finger (principal)
CPT/HCPCS: 20550; 73030; 73130; 99212; J1100

== ENCOUNTER → 2022-06-02 11:12 | Outpatient (BNVA) | payer MEDICAID, SELFPAY | PROVIDERS: PCP Internal Medicine; Visit Provider Orthopaedic Surgery | DX: M65.331 Trigger finger, right middle finger (principal) | CPT/HCPCS: 99212 ==

== ENCOUNTER → 2022-06-16 13:00 | Outpatient (BNVA) | payer MEDICAID, SELFPAY | PROVIDERS: PCP Internal Medicine; Visit Provider Physician Assistant | DX: M17.11 Unilateral primary osteoarthritis, right knee (principal) | CPT/HCPCS: 20610; 99212; J1040 ==

== ENCOUNTER → 2022-07-30 10:02 | Outpatient (BNVA) | payer MEDICAID, SELFPAY | PROVIDERS: PCP Internal Medicine; Visit Provider Obstetrics & Gynecology ==

== ENCOUNTER 2022-08-06 13:06 | Outpatient (REF) | payer MEDICAID, SELFPAY ==
--- NOTE | ~2022-08-06 | MM_ITS ---
EXAMINATION: MM SCREENING DIGITAL BREAST TOMOSYNTHESIS, BILATERAL CLINICAL INFORMATION: Screening. Asymptomatic. The lifetime risk of breast cancer based on the Tyrer-Cuzick Model is 6%. COMPARISON: Mammography: 07/16/2021, 07/11/2020, 12/29/2018 TECHNIQUE: Digital breast tomosynthesis is performed in both the craniocaudal and mediolateral oblique views along with computer-aided detection (CAD). Synthesized 2D images are generated from the tomosynthesis. FINDINGS: There are scattered areas of fibroglandular density (ACR BI-RADS breast composition Category b). There are no significant masses, abnormal calcifications, or other abnormalities. Parenchymal pattern is similar to prior studies. There is no developing density or architectural abnormality. The axilla are stable. Skin contours are unremarkable. No significant changes from prior studies. MM/MM tomosynthesis screening BI IMPRESSION: No mammographic evidence of malignancy. ASSESSMENT: BI-RADS 2: Benign RECOMMENDATION: Routine annual mammography screening. This patient's information was entered into a reminder system with a target due date for their next mammogram.
== END 2022-08-06 13:07 | disposition home or self-care (01) ==
LOC: HO.MAMMO 13:06
PROVIDERS: Visit Provider Internal Medicine
DX: Z12.31 Encounter for screening mammogram for malignant neoplasm of breast (principal)
CPT/HCPCS: 77063; 77067

== ENCOUNTER 2022-09-10 12:38 | Outpatient (REF) | payer MEDICAID, SELFPAY | END 2022-09-10 12:39 | disposition home or self-care (01) | LOC: HO.LAB 12:38 | PROVIDERS: PCP Internal Medicine; Visit Provider Internal Medicine | DX: E78.00 Pure hypercholesterolemia, unspecified (principal); F32.5 Major depressive disorder, single episode, in full remission; I10 Essential (primary) hypertension; R05.9 Cough, unspecified | CPT/HCPCS: 36415; 80053; 80061; 85025 ==

== ENCOUNTER → 2022-10-07 13:10 | Outpatient (BNVA) | payer MEDICAID, SELFPAY | PROVIDERS: PCP Internal Medicine; Visit Provider Obstetrics & Gynecology ==

== ENCOUNTER 2022-12-15 14:36 | Outpatient (AMB) | payer MEDICAID, SELFPAY ==
--- NOTE | 2022-12-15 14:50 | A.OFFVIS_ITS ---
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 No complaints. Last Pap/HPV was negative in 12/22, the patient underwent TVH BSO with cystocele repair with Urogynecology year ago, no history of abnormal Paps Last Mammogram was BI-RADS 2 in 08/27 Last Colonoscopy was done in 10/22 [facility] Medical History Restless leg HTN (hypertension) Deaf Vitamin D deficiency Allergic rhinitis Joint pain Migraines Surgical History (Updated 12/15/22 @ 15:17 by Rose Levin CMA) H/O vaginal hysterectomy Hx of varicose vein ligation and stripping Hx of colonoscopy History of nasal surgery Family History Mother Colon cancer Social History Household Members: None Housing: Apartment Alcohol intake: never Patient Tobacco Use Status: Never used Tobacco Current occupational status: disabled 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 Sexually active: No Sexual orientation: Straight/Heterosexual Gender identity: Female Female Reproductive History Menstrual Age of Menarche: 11 Menopause type: natural Total pregnancies: 6 Full term: 5 Number of Living Children: 5 Ab spontaneous: 1 Date of last pap smear: 12/30/17 Date of Mammogram: 08/06/22 Review of Systems Const All systems reviewed & are unremarkable except as noted in HPI and below Card Reports as per HPI Resp Reports as per HPI GI Reports as per HPI and Reports no additional complaints Reports as per HPI Physical Exam Vital Signs: BMI result Body Mass Index 34.4 Const General: cooperative, healthy appearing and comfortable Chest Chest palpation & inspection: normal inspection of the chest and normal palpation of entire chest wall Breast/axilla inspection: normal inspection of the breasts and normal inspection of the axillae Breast/axilla palpation: normal palpation of the breasts, normal palpation of the axillae and no axillary lymphadenopathy Resp Effort & Inspection: normal respiratory effort Auscultation: clear to auscultation bilaterally Percussion: percussion normal Cardio Palpation: normal PMI Rate: regular rate Rhythm: regular rhythm Heart sounds: no murmurs and no rubs Peripheral pulses: Peripheral pulses 2+ throughout GI Inspection: Yes normal to inspection Palpation (GI): Soft to palpation, nontender, no guarding, not rigid and No hepatosplenomegaly present Percussion: Yes normal to percussion Auscultation: normal bowel sounds Rectal Exam - Female: deferred External Female Exam: No lesion Speculum Exam - Vagina: normal appearance of the vagina, normal vaginal discharge and not erythematous Speculum Exam - Cervix: Cervix absent Bimanual exam- vagina & uterus: uterus absent Bimanual Exam- Adnexa, other: tender and Other (No masses felt) Assessment & Plan Assessment & Plan (1) Well woman exam: Code(s): Z01.419 - Encounter for gynecological examination (general) (routine) without abnormal findings Plan: Co testing not indicated since the patient has no history of abnormal Pap smear and underwent TVH BSO. Counseled the patient about the recommended dietary allowance of 1200 mg of Calcium & 600 IU of vitamin D. Instruction given to the patient to schedule next screen Mammogram in 08/28. The patient is scheduled with Dr. Temple in few weeks for screening colonoscopy . The patient was instructed to perform monthly self-breast exams and schedule annual exam in a year. All questions answered and the patient verbalized understanding. Coding Level of Care Code Est Pt Prev Care 40-64y(94232) Diagnoses Well woman exam Z01.419
[2022-12-15 14:51] VITALS: BMI 34.4
== END 2022-12-15 15:52 | disposition home or self-care (01) ==
PROVIDERS: PCP Internal Medicine; Visit Provider Obstetrics & Gynecology
DX: Z01.419 Encounter for gynecological examination (general) (routine) without abnormal findings (principal)
CPT/HCPCS: 99396

== ENCOUNTER → 2022-12-15 14:36 | Outpatient (BNVA) | payer MEDICAID, SELFPAY | PROVIDERS: PCP Internal Medicine; Visit Provider Obstetrics & Gynecology | DX: Z01.419 Encounter for gynecological examination (general) (routine) without abnormal findings (principal) | CPT/HCPCS: 99396 ==

== ENCOUNTER 2022-12-20 15:37 | Outpatient (AMB) | payer MEDICAID, SELFPAY ==
--- NOTE | 2022-12-20 15:38 | A.OFFVIS_ITS ---
Intake Vital Signs 12/20/22 15:45 Height 5 ft 2 in Weight 192 lb BMI 35.1 BP 128/71 Blood Pressure Location Rt brachial Position Sitting Pulse 72 Intake Visit Reasons: re-call colonoscopy Intake Note: This patient presents for an assessment for recall colonoscopy screening. Patient c/o; reports no complaints at this time. Management Department Chair Required: No Accompanied by: Family/Other Allergies tramadol Adverse Reaction (Unknown, Verified 12/20/22 15:45) vomiting Seasonal Allergeries Allergy (Unknown, Uncoded 12/20/22 15:45) sneezing Medication List - Last Reconciled 12/20/22 by Samuel Temple MD amitriptyline 25 mg PO BEDTIME atorvastatin 1 tab PO DAILY fluticasone propionate 50 mcg/actuation 1 spray intranasal BID loratadine 10 mg PO DAILY losartan 1 tab PO DAILY multivitamin 1 cap PO DAILY sertraline 1 tab PO DAILY HPI re-call colonoscopy HPI Details 56-year-old female referred for screenin g colonoscopy. Her last colonoscopy was in 2018. She has family history of colon cancer and had been recommended to undergo a colonoscopy every 5 years. She had 2 small polyps that were removed which were adenomatous in 2018. She currently denies significant GI complaints. She is hearing impaired and reads lips. 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 Sexual orientation: Straight/Heterosexual Gender identity: Female Female Reproductive History Menstrual Age of Menarche: 11 Review of Systems Const Denies chills and Denies fever(s) Card Denies chest pain, Denies dyspnea and Denies dyspnea on exertion Resp Denies cough, Denies dyspnea and Denies dyspnea on exertion GI Denies hematochezia and Denies change in bowel habits Denies hematuria Musc Denies back pain and Denies limited range of motion Neuro Denies focal weakness and Denies convulsions Psych Denies depression and Denies mood swings Physical Exam Const General: comfortable and no acute distress Orientation/consciousness: patient oriented x3 Neck Neck: Yes no lymphadenopathy Resp Auscultation: clear to auscultation bilaterally Cardio Rhythm: regular rhythm GI Palpation (GI): Soft to palpation, nontender and no guarding Neuro General: patient oriented x3 Assessment & Plan Assessment & Plan (1) Family history of colon cancer: Code(s): Z80.0 - Family history of malignant neoplasm of digestive organs Plan: She states colon cancer in she undergoes a screening colonoscopy every 5 years. I reviewed with her the technique of colonoscopy for screening. I discussed the risks including but not limited to bleeding and perforation, as well as the benefits and alternatives. She understands and wants to proceed. Coding Level of Care Code New Pt Level 3 (84825) Diagnoses Family history of colon cancer Z80.0
[2022-12-20 15:45] VITALS: BP 128/71; PULSE 72; BMI 35.1
== END 2022-12-20 16:03 | disposition home or self-care (01) ==
PROVIDERS: PCP Internal Medicine; Visit Provider Surgery
DX: Z80.0 Family history of malignant neoplasm of digestive organs (principal)
CPT/HCPCS: 99203

== ENCOUNTER → 2022-12-20 15:37 | Outpatient (BNVA) | payer MEDICAID, SELFPAY | PROVIDERS: PCP Internal Medicine; Visit Provider Surgery ==

== ENCOUNTER 2023-03-16 08:54 | Outpatient (REF) | payer MEDICAID, SELFPAY ==
[2023-03-16 10:11] LABS: Estimated Average Glucose 151 mg/dL; Hemoglobin A1c % 6.9 % (<6.0)
[2023-03-16 10:51] LABS: Alanine Aminotransferase 33 U/L (0-31); Albumin Level 3.8 g/dL (3.5-5.0); Alkaline Phosphatase 101 U/L (39-117); Anion Gap 12 (12-20); Aspartate Amino Transferase 28 U/L (5-31); Bilirubin Total 0.5 mg/dL (0.0-1.0); Blood Urea Nitrogen 14 mg/dL (9-16); Calcium 9.7 mg/dL (8.4-10.2); Carbon Dioxide 29 mmol/L (22-29); Chloride 104 mmol/L (96-108); Estimated Glomerular Filt Rate > 60; Glucose Random 135 mg/dL (60-115); Potassium 4.5 mmol/L (3.3-5.1); Sodium 140 mmol/L (135-145); Total Protein 7.2 g/dL (6.5-8.0)
== END 2023-03-16 08:55 | disposition home or self-care (01) ==
LOC: HO.LAB 08:54
PROVIDERS: PCP Internal Medicine; Visit Provider Internal Medicine
DX: Z00.00 Encounter for general adult medical examination without abnormal findings (principal); E78.00 Pure hypercholesterolemia, unspecified; I10 Essential (primary) hypertension; R73.01 Impaired fasting glucose; Z86.010 Personal history of colon polyps
CPT/HCPCS: 36415; 80053; 83036

== ENCOUNTER 2023-03-18 08:40 | Day surgery (SDC) | payer MEDICAID, SELFPAY ==
[2023-02-08 17:02] VITALS: BMI 35.1
[2023-03-18 10:26] VITALS: BMI 33.8
--- NOTE | 2023-03-18 10:40 | HO.ANESPROP2 ---
[facility] Active Problems Active Problems: All Active Problems (Updated 12/20/22 @ 15:42 by Samuel Temple MD) Family history of colon cancer (Acute) Osteoarthritis of right knee (Acute) Trigger finger, right middle finger (Acute) Cystocele and rectocele with incomplete uterovaginal prolapse (Acute) Well woman exam (Acute) Postmenopausal bleeding (Acute) Complex ovarian cyst (Acute) Cystocele (Acute) Urine incontinence (Acute) Past Medical History Medical History Family history of colon cancer Restless leg HTN (hypertension) Deaf Vitamin D deficiency Allergic rhinitis Joint pain Migraines Family History Family History Mother Colon cancer Family history of problems with anesthesia: No Surgical History Surgical History H/O vaginal hysterectomy Hx of varicose vein ligation and stripping Hx of colonoscopy History of nasal surgery History of Problems with Anesthesia: No Social History Social History Household Members: None Housing: Apartment Alcohol intake: never Patient Tobacco Use Status: Never used Tobacco Use of substances other than those prescribed or required for medical reasons: No Are you DNR?: No Advance Directives: No Advance Directives Information Provided: Yes Current occupational status: disabled 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 Sexual orientation: Straight/Heterosexual Gender identity: Female Meds Allergies Allergy/AdvReac Type Severity Reaction Status Date / Time tramadol AdvReac Unknown vomiting Verified 03/18/23 10:29 Seasonal Allergeries Allergy Unknown sneezing Uncoded 03/18/23 10:29 Home Medications Medication Instructions Recorded Confirmed Last Taken Type amitriptyline 25 mg tablet 25 mg PO BEDTIME 01/01/20 12/20/22 Unknown History fluticasone propionate 50 1 spray intranasal BID 01/01/20 12/20/22 Unknown History mcg/actuation nasal spray,suspension loratadine 10 mg capsule 10 mg PO DAILY 01/01/20 12/20/22 Unknown History multivitamin 1 cap PO DAILY 01/01/20 12/20/22 Unknown History atorvastatin 40 mg tablet 1 tab PO DAILY 03/19/21 12/20/22 Unknown History losartan 100 mg tablet 1 tab PO DAILY 03/19/21 03/18/23 03/17/23 History sertraline 100 mg tablet 1 tab PO DAILY 03/19/21 12/20/22 Unknown History Exam Height,Weight and Vital Signs: Height 5 ft 2 in Weight 83.915 kg Airway Mallampati Class: II TM Dist: >3cm Neck ROM: Full Loose/Missing/Broken Teeth: No Heart: RRR Lungs: CTA Assessment and Plan Assessment Anesthesia Assessment: Anesthesia Plan Discussed and Chart Reviewed Final Anesthetic Review Family History of Problems with Anesthesia: No History of Problems with Anesthesia: No NPO: Yes ASA Class: II Final Preanesthetic Review: Meds/Allgs Chart Reviewed and Consent Obtained/Reviewed Patient Risk: Low Procedure Risk: Low Anesthetic Plan Anesthetic Plan: MAC: Disposition: Standard PACU
--- NOTE | 2023-03-18 10:49 | PC.NURSE ---
Pt was scheduled for 0730 case. Call was made on 02/14/23 with preop instructions and 0600 am arrival time. Pt did not arrive this am attempts made to reach. Daughters number not in service. 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 Khmer sign language not available on W[employer]. Pt daughter used to interpret. Technical Maintenance Technician services aware.
[2023-03-18 11:32] VITALS: BP 112/62; PULSE 60; RESP 16; TEMP 36.3; O2SAT 98
[2023-03-18] MEDS: Lactated Ringers 1,000 ML 80 ML IVCONT (11:34)
--- NOTE | 2023-03-18 11:58 | MHC.SHP ---
Pre-Procedural Eval Section A Date of Service: 03/18/23 Section B Chief Complaint: Family history of malignant neoplasm of digestive Details of Present Illness: Has family history of colon cancer here for screening colonoscopy, no GI complaints Patient communicates by sign language in Turkish Relevant Family History (Specify if Yes): Yes Relevant Social History: None Present Medications: see Short Stay Collaborative assessment Medical History: Significant History (Arthritis, incontinence of urine, history of ovarian cyst) Allergies: Allergies Allergy/AdvReac Type Severity Reaction Status Date / Time tramadol AdvReac Unknown vomiting Verified 03/18/23 10:29 Seasonal Allergeries Allergy Unknown sneezing Uncoded 03/18/23 10:29 Review of Systems Sugical H&P ROS: Negative: Constitution, Cardiovascular, Respiratory, Neurological, Psychiatric, Hem-Onc, Allergic/Immunologic, Gastrointestinal, Genitourinary, Musculoskeletal, Integumentary, Endocrine and Eyes/Ears/Nose/Throat Exam Surgical H&P Exam: Normal: HEENT, Normal: Heart, Normal: Lungs, Normal: Extremities, Normal: Abdomen, Normal: Skin and Normal: Neurological Plan Diagnosis/Plan: Unchanged I have reviewed the history and physical and performed a pertinent physical examination on my patient. No changes have occurred unless specified. Time Spent With Patient Time: Total time managing care of this patient today ____ minutes.
--- NOTE | 2023-03-18 13:16 | W.PM.OPN ---
Operative Note Operative Note Date of Service: 03/18/23 Narrative: Preop diagnosis: Family history of colon cancer Postop diagnosis: 1. small polyp, about 2-3 mm, relatively flat, distal transverse near the hepatic flexure removed with multiple bites of the cold forceps 2. Polyp, about 8 mm, at the lip of the cecum, removed with cold snare 3. Small polyp, about 2 mm, in the distal right colon near the cecum removed with cold forceps 4. Diverticuli, small in the sigmoid 5. Residual particles of stool in the right colon Procedure: Colonoscopy with polypectomy using cold forceps times 2 and cold snare x1 Surgeon: Kathy Barreto. The scope was then withdrawn completely with desufflation The patient tolerated procedure well. There were no immediate complications. [His] next colonoscopy may be in the next [10] years. The patient is a 57-year-old female, who undergoes a colonoscopy every 5 years because of a family history of colon cancer in the mother. She understood the technique of the planned procedure as well as the risks, benefits, and alternatives. She communicates by sign language. The patient was brought to the operating room and placed in left lateral decubitus position under monitored anesthesia care. A surgical time-out was done. A full digital rectal exam was done and this did not reveal any significant anal lesions. The tip of the Olympus colonoscope was gently introduced through the anal orifice advanced with insufflation all the way to the cecum. The cecum was intubated. The cecum was identified by visualization of the ileocecal valve as well as the appendiceal orifice. The cecal mucosa was unremarkable. The scope was gradually withdrawn with careful examination of the entire colonic mucosa being done with scope withdrawal. The patient had adequate bowel prep although there was note of significant stool particles in the right colon. There was note of a polyp probably about 8 mm in these lip of the cecum. This removed using cold snare. There was note of a small polyp about 2 mm in the distal right colon near the cecum. This was removed used to multiple bites of the cold forceps. A polyp in the distal transverse near the hepatic flexure was seen and this was about 2 mm in size as well and this was removed multiple bites of the cold forceps. There was note of occasional diverticula in the sigmoid There were no other lesions seen. The rectum was reached. The anal canal was unremarkable. The scope was then withdrawn completely with desufflation The patient tolerated the procedure well. There were no immediate complications. Depending on the path report, I would probably recommend another colonoscopy in the next 2-3 years.
[2023-03-18 13:22] VITALS: BP 112/77; PULSE 86; RESP 18; TEMP 36.4; O2SAT 100
[2023-03-18 13:44] VITALS: BP 116/59; PULSE 63; RESP 17; TEMP 36.4; O2SAT 96
== END 2023-03-18 14:08 | disposition home or self-care (01) ==
PROVIDERS: PCP Internal Medicine; Visit Provider Surgery
PROC: 0DBE8ZZ Excision of Large Intestine, Via Natural or Artificial Opening Endoscopic (ICD-10-PCS; CPT 45385; principal; 2023-03-18 07:30)
DX: Z12.11 Encounter for screening for malignant neoplasm of colon (principal); Z86.010 Personal history of colon polyps; Z80.0 Family history of malignant neoplasm of digestive organs; D12.0 Benign neoplasm of cecum; D12.3 Benign neoplasm of transverse colon; K57.30 Diverticulosis of large intestine without perforation or abscess without bleeding; I10 Essential (primary) hypertension; E55.9 Vitamin D deficiency, unspecified; J30.9 Allergic rhinitis, unspecified; H91.3 Deaf nonspeaking, not elsewhere classified; G43.909 Migraine, unspecified, not intractable, without status migrainosus; Z79.51 Long term (current) use of inhaled steroids; Z79.899 Other long term (current) drug therapy; Z88.8 Allergy status to other drugs, medicaments and biological substances
CPT/HCPCS: 45385; 45380; 88305; J2704

== ENCOUNTER → 2023-03-18 08:40 | Outpatient (BNV) | payer MEDICAID, SELFPAY | PROVIDERS: PCP Internal Medicine; Visit Provider Surgery | DX: Z12.11 Encounter for screening for malignant neoplasm of colon (principal); K63.5 Polyp of colon; K57.90 Diverticulosis of intestine, part unspecified, without perforation or abscess without bleeding; Z80.0 Family history of malignant neoplasm of digestive organs | CPT/HCPCS: 45380; 45385 ==

== ENCOUNTER 2023-03-31 10:58 | Outpatient (AMB) | payer MEDICAID, SELFPAY ==
--- NOTE | 2023-03-31 11:01 | MHC.OFFVIS ---
Intake Vital Signs 03/31/23 11:07 Height 5 ft 2 in Weight 186 lb BMI 34.0 BP 127/70 Blood Pressure Location Rt brachial Position Sitting Pulse 76 Intake Visit Reasons: S/P colonoscopy Intake Note: This patient presents for a follow-up assessment status post colonoscopy. Pt c/o; reports no complaints at this time. 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 concrete Accompanied by: Family/Other Allergies tramadol Adverse Reaction (Unknown, Verified 03/31/23 11:08) vomiting Seasonal Allergeries Allergy (Unknown, Uncoded 03/31/23 11:08) sneezing Medication List - Last Reconciled 03/31/23 by Samuel Temple MD amitriptyline 25 mg PO BEDTIME atorvastatin 1 tab PO DAILY fluticasone propionate 50 mcg/actuation 1 spray intranasal BID loratadine 10 mg PO DAILY losartan 1 tab PO DAILY multivitamin 1 cap PO DAILY sertraline 1 tab PO DAILY sodium,potassium,mag sulfates 17.5-3.13-1.6 gram (Suprep Bowel Prep Kit) DILUTE; drink full amount early evening before AND next morning at least 2 hr before procedure; follow w 960 mL water PO HPI S/P colonoscopy HPI Details She had undergone colonoscopy for a family history of colon cancer last 03/18/2022. She tolerated procedure well. She currently denies significant complaints. 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 Sexual orientation: Straight/Heterosexual Gender identity: Female Female Reproductive History Menstrual Age of Menarche: 11 Review of Systems Const Denies chills and Denies fever(s) Card Denies chest pain, Denies dyspnea and Denies dyspnea on exertion Resp Denies cough, Denies dyspnea and Denies dyspnea on exertion GI Denies hematochezia and Denies change in bowel habits Denies hematuria Musc Denies back pain and Denies limited range of motion Neuro Denies focal weakness and Denies convulsions Psych Denies depression and Denies mood swings Physical Exam Vital Signs: Last Vital Signs Pulse 76 03/31/23 11:07 BP 127/70 03/31/23 11:07 BMI result Body Mass Index 34.0 Const General: comfortable and no acute distress Orientation/consciousness: No oriented to time Resp Effort & Inspection: normal respiratory effort Cardio Rate: regular rate GI Palpation (GI): Soft to palpation, not firm and nontender Neuro General: No oriented to time Assessment & Plan Assessment & Plan (1) Tubular adenoma: Code(s): D36.9 - Benign neoplasm, unspecified site Plan: Status post colonoscopy perioperative I removed 3 small polyps and 2 of these were tubular adenomas. I would recommend another colonoscopy in 3 years. (2) Family history of colon cancer: Code(s): Z80.0 - Family history of malignant neoplasm of digestive organs Plan: I removed 2 small adenomas. I would recommend repeating the colonoscopy in 3 years. She understands the plan. She also had diverticulosis. Coding Level of Care Code Est Pt Level 3 (37924) Diagnoses Tubular adenoma D36.9 Family history of colon cancer Z80.0
[2023-03-31 11:07] VITALS: BP 127/70; PULSE 76; BMI 34.0
== END 2023-03-31 11:19 | disposition home or self-care (01) ==
PROVIDERS: PCP Internal Medicine; Visit Provider Surgery
DX: D36.9 Benign neoplasm, unspecified site (principal); Z80.0 Family history of malignant neoplasm of digestive organs
CPT/HCPCS: 99213

== ENCOUNTER → 2023-03-31 10:58 | Outpatient (BNVA) | payer MEDICAID, SELFPAY | PROVIDERS: PCP Internal Medicine; Visit Provider Surgery | DX: D36.9 Benign neoplasm, unspecified site (principal); Z80.0 Family history of malignant neoplasm of digestive organs | CPT/HCPCS: 99212 ==

== ENCOUNTER 2023-06-15 08:38 | Outpatient (REF) | payer MEDICAID, SELFPAY ==
[2023-06-15 10:07] LABS: Alanine Aminotransferase 27 U/L (0-31); Albumin Level 3.9 g/dL (3.5-5.0); Alkaline Phosphatase 88 U/L (39-117); Anion Gap 11 (12-20); Aspartate Amino Transferase 27 U/L (5-31); Bilirubin Total 0.6 mg/dL (0.0-1.0); Blood Urea Nitrogen 15 mg/dL (9-16); Calcium 9.3 mg/dL (8.4-10.2); Carbon Dioxide 28 mmol/L (22-29); Chloride 102 mmol/L (96-108); Cholesterol 176 mg/dL (<200); Estimated Glomerular Filt Rate > 60; Glucose Random 129 mg/dL (60-115); HDL Cholesterol 40 mg/dL (>40); LDL Cholesterol Calculated 114 mg/dL (<100); Potassium 3.6 mmol/L (3.3-5.1); Sodium 137 mmol/L (135-145); Total Protein 7.1 g/dL (6.5-8.0); Triglycerides 110 mg/dL (<150)
[2023-06-15 11:39] LABS: Estimated Average Glucose 146 mg/dL; Hemoglobin A1c % 6.7 % (<6.0)
[2023-06-15 19:35] LABS: Creatinine Urine 197.94 mg/dL
== END 2023-06-15 08:39 | disposition home or self-care (01) ==
LOC: HO.LAB 08:38
PROVIDERS: PCP Internal Medicine; Visit Provider Internal Medicine
DX: E11.9 Type 2 diabetes mellitus without complications (principal); E78.00 Pure hypercholesterolemia, unspecified; F32.5 Major depressive disorder, single episode, in full remission
CPT/HCPCS: 36415; 80053; 80061; 82043; 82570; 83036

== ENCOUNTER 2023-09-10 07:30 | Outpatient (REF) | payer MEDICAID, SELFPAY ==
[2023-09-10 08:21] LABS: Estimated Average Glucose 137 mg/dL; Hemoglobin A1c % 6.4 % (<6.0)
[2023-09-10 08:34] LABS: Creatinine Urine 199.24 mg/dL
[2023-09-10 08:35] LABS: Alanine Aminotransferase 32 U/L (0-31); Albumin Level 4.1 g/dL (3.5-5.0); Alkaline Phosphatase 106 U/L (39-117); Anion Gap 12 (12-20); Aspartate Amino Transferase 30 U/L (5-31); Bilirubin Total 0.6 mg/dL (0.0-1.0); Blood Urea Nitrogen 18 mg/dL (9-16); Calcium 9.7 mg/dL (8.4-10.2); Carbon Dioxide 30 mmol/L (22-29); Chloride 102 mmol/L (96-108); Cholesterol 141 mg/dL (<200); Estimated Glomerular Filt Rate > 60; Glucose Random 109 mg/dL (60-115); HDL Cholesterol 37 mg/dL (>40); LDL Cholesterol Calculated 75 mg/dL (<100); Potassium 3.8 mmol/L (3.3-5.1); Sodium 140 mmol/L (135-145); Total Protein 7.3 g/dL (6.5-8.0); Triglycerides 148 mg/dL (<150)
== END 2023-09-10 07:31 | disposition home or self-care (01) ==
LOC: HO.LAB 07:30
PROVIDERS: PCP Internal Medicine; Visit Provider Internal Medicine
DX: E11.9 Type 2 diabetes mellitus without complications (principal); E78.00 Pure hypercholesterolemia, unspecified; F32.5 Major depressive disorder, single episode, in full remission; Z68.34 Body mass index [BMI] 34.0-34.9, adult
CPT/HCPCS: 36415; 80053; 80061; 82043; 82570; 83036

== ENCOUNTER 2024-01-11 15:15 | Outpatient (REF) | payer MEDICAID, SELFPAY ==
--- NOTE | ~2024-01-11 | MM_ITS ---
EXAMINATION: MM SCREENING DIGITAL BREAST TOMOSYNTHESIS, BILATERAL CLINICAL INFORMATION: Screening. Asymptomatic. COMPARISON: Mammography: Comparison is made with available priors TECHNIQUE: Digital breast mammography with tomosynthesis is performed in both the craniocaudal and mediolateral oblique views along with computer-aided detection (CAD). FINDINGS: There are scattered areas of fibroglandular density (ACR BI-RADS breast composition Category b). There are no significant masses, abnormal calcifications, or other abnormalities. MM/MM tomosynthesis screening BI IMPRESSION: No mammographic evidence of malignancy. ASSESSMENT: BI-RADS BI-RADS 1 - Negative RECOMMENDATION: Routine annual mammography screening. 1 year F/U This examination should not preclude the clinical evaluation of a suspicious palpable abnormality. This patient's information was entered into a reminder system with a target due date for their next mammogram. Electronically signed by: Vandana Paniagua DO 01/20/2024 01:41 PM MONICA
== END 2024-01-11 15:16 | disposition home or self-care (01) ==
LOC: HO.MAMMO 15:15
PROVIDERS: Visit Provider Internal Medicine
DX: Z12.31 Encounter for screening mammogram for malignant neoplasm of breast (principal)
CPT/HCPCS: 77063; 77067

== ENCOUNTER → 2024-01-11 15:15 | Outpatient (BNV) | payer MEDICAID, SELFPAY | PROVIDERS: Visit Provider Internal Medicine | DX: Z12.31 Encounter for screening mammogram for malignant neoplasm of breast (principal) | CPT/HCPCS: 77063; 77067 ==

== ENCOUNTER 2024-01-14 08:56 | Outpatient (REF) | payer MEDICAID, SELFPAY ==
[2024-01-14 09:35] LABS: Estimated Average Glucose 128 mg/dL; Hemoglobin A1C 157.2519 umol/L; Hemoglobin A1c % 6.1 % (<6.0)
[2024-01-14 10:23] LABS: Alanine Aminotransferase 45 U/L (0-31); Alkaline Phosphatase 113 U/L (39-117); Anion Gap 14 (12-20); Aspartate Amino Transferase 44 U/L (5-31); Bilirubin Total 0.7 mg/dL (0.0-1.0); Blood Urea Nitrogen 15 mg/dL (9-16); Calcium 9.9 mg/dL (8.4-10.2); Carbon Dioxide 27 mmol/L (22-29); Chloride 105 mmol/L (96-108); Estimated Glomerular Filt Rate > 60; Glucose Random 118 mg/dL (60-115); Sodium 142 mmol/L (135-145); Total Protein 7.1 g/dL (6.5-8.0)
== END 2024-01-14 08:57 | disposition home or self-care (01) ==
LOC: HO.LAB 08:56
PROVIDERS: PCP Internal Medicine; Visit Provider Internal Medicine
DX: Z00.00 Encounter for general adult medical examination without abnormal findings (principal); E11.9 Type 2 diabetes mellitus without complications; E78.00 Pure hypercholesterolemia, unspecified; F32.5 Major depressive disorder, single episode, in full remission; M65.841 Other synovitis and tenosynovitis, right hand
CPT/HCPCS: 36415; 80053; 83036

== ENCOUNTER 2024-02-12 13:03 | Emergency (ER) | payer MEDICAID, SELFPAY ==
--- NOTE | ~2024-02-12 | XR_ITS ---
EXAMINATION: XR CHEST CLINICAL INFORMATION: cough, wheezing COMPARISON: None available. TECHNIQUE: Frontal view of the chest was obtained. FINDINGS: No significant abnormality is noted involving the heart, lungs, mediastinum, bony thorax or soft tissues. XR/XR chest 1V IMPRESSION: Unremarkable examination. Electronically signed by: Nanette Dumont MD 02/12/2024 03:13 PM [facility]
--- NOTE | 2024-02-12 13:13 | ED_ITS ---
HPI - General Adult General Chief complaint: Upper Respiratory Symptoms Stated complaint: asthma Related Data Home Medications ?Medication ?Instructions ?Recorded ?Confirmed amitriptyline 25 mg tablet 25 mg PO BEDTIME 01/01/20 03/31/23 fluticasone propionate 50 1 spray intranasal BID 01/01/20 03/31/23 mcg/actuation nasal spray,suspension loratadine 10 mg capsule 10 mg PO DAILY 01/01/20 03/31/23 multivitamin 1 cap PO DAILY 01/01/20 03/31/23 atorvastatin 40 mg tablet 1 tab PO DAILY 03/19/21 03/31/23 losartan 100 mg tablet 1 tab PO DAILY 03/19/21 03/31/23 sertraline 100 mg tablet 1 tab PO DAILY 03/19/21 03/31/23 Previous Rx's ?Medication ?Instructions ?Recorded sodium,potassium,mag sulfates 17.5 See Rx Instructions PO .COMPLEX 12/20/22 gram-3.13 gram-1.6 gram oral soln #354 mL (Suprep Bowel Prep Kit) Allergies Allergy/AdvReac Type Severity Reaction Status Date / Time tramadol AdvReac Unknown vomiting Verified 02/12/24 13:17 Seasonal Allergeries Allergy Unknown sneezing Uncoded 03/31/23 11:08 [facility] Past Medical History Medical History (Updated 03/31/23 @ 11:16 by Samuel Temple MD) Tubular adenoma Family history of colon cancer Restless leg HTN (hypertension) Deaf Vitamin D deficiency Allergic rhinitis Joint pain Migraines Surgical History H/O vaginal hysterectomy Hx of varicose vein ligation and stripping Hx of colonoscopy History of nasal surgery Family History Family History Mother Colon cancer Social History Social History Household Members: None Housing: Apartment Alcohol intake: never Patient Tobacco Use Status: Never used Tobacco Current occupational status: disabled 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 Deferred additional HPI, ROS, PE to primary provider. 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 Had fevers x 3 days but now resolved. Will obtain strep testing, rsv/flu/covid Slight wheeze Will order bronch pulse ox was 89%. With some deep breathing she was able to, to 92-93%. We did place her on 2 L of oxygen. 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 Discharge Plan Discharge Prescriptions: No Action atorvastatin 40 mg tablet 1 tab PO DAILY sertraline 100 mg tablet 1 tab PO DAILY losartan 100 mg tablet 1 tab PO DAILY multivitamin Capsule 1 cap PO DAILY fluticasone propionate 50 mcg/actuation spray,suspension 1 spray intranasal BID Rx Instructions: administer into each nostril loratadine 10 mg capsule 10 mg PO DAILY amitriptyline 25 mg tablet 25 mg PO BEDTIME sodium,potassium,mag sulfates [Suprep Bowel Prep Kit] 17.5-3.13-1.6 gram recon soln See Rx Instructions PO .COMPLEX Qty: 354 0RF Rx Instructions: DILUTE; drink full amount early evening before AND next morning at least 2 hr before procedure; follow w 960 mL water PO Print Language: Peruvian
[2024-02-12 13:14] VITALS: BP 116/64; PULSE 102; RESP 18; TEMP 37; O2SAT 92; BMI 28.2
[2024-02-12 13:25] VITALS: O2SAT 89
[2024-02-12] MEDS: Albuterol/Iprat 2.5/0.5MG 3 ML AMPUL.NEB INHALE ×2 (13:33→15:11)
[2024-02-12 13:34] VITALS: PULSE 85; RESP 18; O2SAT 94
[2024-02-12 13:40] LABS: IDNOW Serial# 58CA691E; Strep A Nucleic Acid Negative (Negative)
--- NOTE | 2024-02-12 13:41 | ED.GENADULT ---
HPI - General Adult General Chief complaint: Upper Respiratory Symptoms Stated complaint: asthma Time Seen by Provider: 02/12/24 13:27 Source: patient Mode of arrival: ambulatory Limitations: no limitations History of Present Illness ED Provider: Perez SEXTON HPI narrative: 58-year-old female history of asthma who is deaf and new presents to ED for URI symptoms for 1 week. Patient states coughing, wheezing, and sore throat for 1 week. Patient daughter translating sign language for us. Patient denies any leg swelling, calf pain, recent long travel, recent surgery, or coughing up blood. Related Data Home Medications ?Medication ?Instructions ?Recorded ?Confirmed amitriptyline 25 mg tablet 25 mg PO BEDTIME 01/01/20 03/31/23 fluticasone propionate 50 1 spray intranasal BID 01/01/20 03/31/23 mcg/actuation nasal spray,suspension loratadine 10 mg capsule 10 mg PO DAILY 01/01/20 03/31/23 multivitamin 1 cap PO DAILY 01/01/20 03/31/23 atorvastatin 40 mg tablet 1 tab PO DAILY 03/19/21 03/31/23 losartan 100 mg tablet 1 tab PO DAILY 03/19/21 03/31/23 sertraline 100 mg tablet 1 tab PO DAILY 03/19/21 03/31/23 Previous Rx's ?Medication ?Instructions ?Recorded sodium,potassium,mag sulfates 17.5 See Rx Instructions PO .COMPLEX 12/20/22 gram-3.13 gram-1.6 gram oral soln #354 mL (Suprep Bowel Prep Kit) albuterol sulfate 90 mcg/actuation 2 puff inhalation Q4-6H PRN 02/12/24 aerosol inhaler shortness of breath or wheezing #8.5 grams benzonatate 200 mg capsule 200 mg PO TID PRN cough 5 days #15 02/12/24 caps prednisone 20 mg tablet 40 mg (2 x 20 mg) PO DAILY 5 days 02/12/24 #10 tabs Allergies Allergy/AdvReac Type Severity Reaction Status Date / Time tramadol AdvReac Unknown vomiting Verified 02/12/24 13:17 Seasonal Allergeries Allergy Unknown sneezing Uncoded 03/31/23 11:08 Review of Systems Review of Systems: Coughing yellow phlegm wheezing Yes all other systems are reviewed and are negative PMFSH Past Medical History Medical History (Updated 02/12/24 @ 16:19 by GAURI Oneill) Tubular adenoma Family history of colon cancer Restless leg HTN (hypertension) Deaf Vitamin D deficiency Allergic rhinitis Joint pain Migraines Surgical History H/O vaginal hysterectomy Hx of varicose vein ligation and stripping Hx of colonoscopy History of nasal surgery Family History Family History Mother Colon cancer Social History Social History Household Members: None Housing: Apartment Alcohol intake: never Patient Tobacco Use Status: Never used Tobacco Advance Directives: No Advance Directives Information Provided: Yes Current occupational status: disabled 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 Sexual orientation: Straight/Heterosexual Gender identity: Female Physical Exam ED Vital Signs: Vital Signs - 24 hr 02/12/24 13:14 02/12/24 13:25 02/12/24 13:34 Temperature 98.6 F Pulse Rate 102 H 85 Respiratory Rate 18 18 Blood Pressure 116/64 Pulse Oximetry 92 89 L Oxygen Delivery Method Room Air Room Air 02/12/24 15:13 02/12/24 16:18 Temperature 98.3 F Pulse Rate 86 96 Respiratory Rate 18 20 Blood Pressure 128/76 Pulse Oximetry 95 Oxygen Delivery Method Room Air BMI result Body Mass Index 28.2 Const General: cooperative, healthy appearing, comfortable, no acute distress, well developed, alert, awake and Physically active Orientation/consciousness: oriented to time and patient oriented x3 HENMT Head: Yes normal to inspection, Yes No palpable skull fracture present, Yes normocephalic and Yes atraumatic Eyes General: appearance normal, both eyes and all related structures Neck Neck: Yes normal visual inspection, Yes full ROM, Yes no lymphadenopathy, Yes no meningeal signs, Yes trachea midline, Yes supple, No anterior neck swelling and No tender Chest Chest palpation & inspection: normal inspection of the chest and normal palpation of entire chest wall Resp Effort & Inspection: normal respiratory effort and able to speak in complete sentences Auscultation: crackles on the right (Mild) and wheezes expiratory wheezes (Mild) Cardio Jugular venous distension: no JVD Heart sounds: S1 normal heart sound present and S2 normal heart sound present GI Inspection: Yes normal to inspection Palpation (GI): Soft to palpation, not firm, nontender, no guarding and not rigid General: No CVA tenderness and Yes no CVA tenderness Back/Spine/Pelvis Back: no CVA tenderness, No CVA tenderness and No back tenderness Skin General skin exam: no rashes or lesions noted, elasticity normal and turgor normal Neuro General: oriented to time, patient oriented x3, gait normal, tone normal, moves all extremities, Normal light touch and pain sensation, no meningeal signs, no focal motor deficits, CN's II-XI intact bilaterally and normal sensation to monofilament Extrem Other: Bilateral lower extremity negative for swelling, pitting edema, or calf tenderness General: Yes normal to inspection, Yes full ROM and Yes capillary refill normal Psych Appearance: grossly normal, well kempt and not disheveled Medications Administered Discontinued Medications Generic Name Dose Route Start Last Admin Trade Name Freq PRN Reason Stop Dose Admin Albuterol/Ipratropium 3 ml 02/12/24 13:28 02/12/24 13:33 Albuterol/Iprat 2.5/0.5mg 3 Ml Ampul.Neb INHALE 02/12/24 13:29 3 ml ONCE ONE Administration Albuterol/Ipratropium 3 ml 02/12/24 15:00 02/12/24 15:11 Albuterol/Iprat 2.5/0.5mg 3 Ml Ampul.Neb INHALE 02/12/24 15:01 3 ml ONCE ONE Administration Magnesium Sulfate 2 gm in 50 mls @ 25 mls/hr 02/12/24 13:37 02/12/24 15:51 Magnesium Sulfate/H2o IV 02/12/24 15:36 Infused ONCE ONE Infusion Methylprednisolone Sodium Succinate 125 mg 02/12/24 13:37 02/12/24 14:05 Methylprednisolone Sod Succ 125 Mg/2 Ml Vial IVPUSH 02/12/24 13:38 125 mg ONCE ONE Administration Medical Decision Making Medical Decision Making MDM Narrative: 58-year-old female with URI symptoms. O2 sat 89% on room air. Labs chest x-ray SARs strep ordered. 2:56pm: Patient is RSV positive. Patient received albuterol Solu-Medrol and magnesium. Ambulatory oxygen saturation test 93 94% on room air. Patient states feeling better. Will order another bronchodilator and do repeat ambulatroy obygen saturation 4:15pm: After receiving 2nd bronchodilator treatment. Patient repeat ambulatory oxygen saturation test shows O2 saturation maintaining at 95 96%. Patient is feel better. Patient will be discharged. Not suspecting PE, CHF, myocardial infarction, pericarditis, myocarditis, cardiac tamponade. Chest x-ray negative pneumonia. Patient explained worrisome signs and informed to return to the ED immediately. Differential Diagnosis Differential Diagnoses: The differential diagnosis associated with the presentation includes (RSV, Pneumonia, COvid) Admission/Observation Consideration of admission/observation: Escalation of care including admission/observation considered Lab Data MDM Lab Attestation statement: I reviewed the patient's lab results. 02/12/24 13:59 02/12/24 13:59 Labs: Lab Results 02/12/24 02/12/24 Range/Units 13:23 13:59 WBC 8.1 (4.8-10.8) X10*3/uL RBC 4.18 L (4.20-5.50) X10*6/uL Hgb 12.6 (12.0-16.0) g/dl Hct 37.3 (37.0-47.0) % MCV 89.2 (80.0-98.0) fL MCH 30.1 (27.0-33.0) pg MCHC 33.8 (31.0-35.0) g/dl RDW 13.9 (11.0-16.0) % Plt Count 208 (160-400) X10*3/uL MPV 10.0 (9.4-12.3) fL Immature Gran % (Auto) 0.2 (0.0-0.4) % Neut % (Auto) 63.3 (45-73) % Lymph % (Auto) 25.8 (20-40) % Republic % (Auto) 9.8 (2-11) % Eos % (Auto) 0.4 (0-4) % Baso % (Auto) 0.5 (0-2) % Lymph # (Auto) 2.1 (1.2-4.9) X10*3/uL Republic # (Auto) 0.8 (0.1-1.2) X10*3/uL Eos # (Auto) 0.0 (0.0-0.4) X10*3/uL Baso # (Auto) 0.0 (0.0-0.2) X10*3/uL Abs Immat Gran (auto) 0.02 (0.00-0.03) X10*3/uL Absolute Neuts (auto) 5.2 (2.0-8.3) x10*3/uL Absolute Nucleated RBC 0.000 (0.0-0.012) X10*3/uL Nucleated RBC % (auto) 0.0 (0.0-0.2) /100WBC Sodium 139 (135-145) mmol/L Potassium 3.1 L D (3.3-5.1) mmol/L Chloride 104 (96-108) mmol/L Carbon Dioxide 26 (22-29) mmol/L Anion Gap 12 (12-20) BUN 16 (9-16) mg/dL Creatinine 0.84 (0.5-1.4) mg/dL Estim Creat Clear Calc 76.6 Estimated GFR > 60 Random Glucose 124 H (60-115) mg/dL Calcium 9.7 (8.4-10.2) mg/dL Total Bilirubin 0.5 (0.0-1.0) mg/dL AST 44 H (5-31) U/L ALT 33 H (0-31) U/L Alkaline Phosphatase 97 (39-117) U/L Total Protein 7.3 (6.5-8.0) g/dL Albumin 3.9 (3.5-5.0) g/dL Influenza Type A (PCR) NEGATIVE (Negative) Influenza Type B (PCR) NEGATIVE (Negative) RSV RNA Qual (PCR) POSITIVE A (Negative) SARS-CoV-2 RNA (RT-PCR) NEGATIVE (Negative) S. pyogenes GrpA GLO Negative (Negative) Independent Interpretation I performed an independent interpretation of an: Plain X-Ray Radiology Impression Discussion of test interpretation with radiology: I have reviewed the radiologist's reading. Independent Historian Clinical information obtained from an independent historian. History obtained from or confirmed by: Other (patient) External Record Review External record reviewed: Other (prior vistis) Prescription Management I considered prescription management with: Antibiotic Discharge Plan Discharge Clinical Impression: Respiratory syncytial virus (RSV), Asthma Patient Disposition: Home, Self-Care Instructions: Respiratory Syncytial Virus (ED), Asthma (ED) Additional Instructions: You came back positive for RSV. You will be discharged with albuterol inhaler and prednisone. Return to the ED immediately for any chest pain, shortness of breath, coughing up blood, weakness, dizziness, or any other concerning symptoms. Prescriptions: New albuterol sulfate 90 mcg/actuation HFA aerosol inhaler 2 puff inhalation Q4-6H PRN (Reason: shortness of breath or wheezing) Qty: 8.5 0RF prednisone 20 mg tablet 40 mg PO DAILY 5 Days Qty: 10 0RF benzonatate 200 mg capsule 200 mg PO TID PRN (Reason: cough) 5 Days Qty: 15 0RF No Action atorvastatin 40 mg tablet 1 tab PO DAILY sertraline 100 mg tablet 1 tab PO DAILY losartan 100 mg tablet 1 tab PO DAILY multivitamin Capsule 1 cap PO DAILY fluticasone propionate 50 mcg/actuation spray,suspension 1 spray intranasal BID Rx Instructions: administer into each nostril loratadine 10 mg capsule 10 mg PO DAILY amitriptyline 25 mg tablet 25 mg PO BEDTIME sodium,potassium,mag sulfates [Suprep Bowel Prep Kit] 17.5-3.13-1.6 gram recon soln See Rx Instructions PO .COMPLEX Qty: 354 0RF Rx Instructions: DILUTE; drink full amount early evening before AND next morning at least 2 hr before procedure; follow w 960 mL water PO Stand Alone Forms: Work/School Release Print Language: Tajik
[2024-02-12 14:04] LABS: MANUAL DIFF FLAG NO
[2024-02-12] MEDS: methylPREDNISolone Sod Succ 125 MG/2 ML VIAL IVPUSH (14:05)
[2024-02-12 14:06] LABS: Basophils Percent Auto 0.5 % (0-2); Eosinophils Percent Auto 0.4 % (0-4); Hematocrit 37.3 % (37.0-47.0); Hemoglobin 12.6 g/dl (12.0-16.0); Imm Gran Abs Auto 0.02 X10*3/uL (0.00-0.03); Imm Gran Pct Auto 0.2 % (0.0-0.4); Lymphocytes Absolute Auto 2.1 X10*3/uL (1.2-4.9); Lymphocytes Percent Auto 25.8 % (20-40); Mean Corpuscular HGB Conc 33.8 g/dl (31.0-35.0); Mean Corpuscular Hemoglobin 30.1 pg (27.0-33.0); Mean Corpuscular Volume 89.2 fL (80.0-98.0); Monocytes Absolute Auto 0.8 X10*3/uL (0.1-1.2); Monocytes Percent Auto 9.8 % (2-11); Neutrophils Absolute Auto 5.2 x10*3/uL (2.0-8.3); Neutrophils Percent Auto 63.3 % (45-73); Platelet Count 208 X10*3/uL (160-400); Red Blood Count 4.18 X10*6/uL (4.20-5.50); Red Cell Distribution Width 13.9 % (11.0-16.0); White Blood Count 8.1 X10*3/uL (4.8-10.8)
[2024-02-12] MEDS: Magnesium Sulfate/H2O 2 GM/50 ML PIGGYBACK IV (14:07)
[2024-02-12 14:32] LABS: Influenza A PCR NEGATIVE (Negative); Influenza B PCR NEGATIVE (Negative); Resp Syncy Virus RNA Qual PCR POSITIVE (Negative); SARS COV2 PCR INHOUSE NEGATIVE (Negative)
[2024-02-12 14:41] LABS: Albumin Level 3.9 g/dL (3.5-5.0); Alkaline Phosphatase 97 U/L (39-117); Anion Gap 12 (12-20); Aspartate Amino Transferase 44 U/L (5-31); Bilirubin Total 0.5 mg/dL (0.0-1.0); Blood Urea Nitrogen 16 mg/dL (9-16); Calcium 9.7 mg/dL (8.4-10.2); Carbon Dioxide 26 mmol/L (22-29); Chloride 104 mmol/L (96-108); Creatinine Clr Calc Pharmacy 76.6; Estimated Glomerular Filt Rate > 60; Glucose Random 124 mg/dL (60-115); Potassium 3.1 mmol/L (3.3-5.1); Sodium 139 mmol/L (135-145); Total Protein 7.3 g/dL (6.5-8.0)
[2024-02-12 14:57] LABS: Alanine Aminotransferase 33 U/L (0-31)
[2024-02-12 15:13] VITALS: PULSE 86; RESP 18; O2SAT 96
[2024-02-12 16:18] VITALS: BP 128/76; PULSE 96; RESP 20; TEMP 36.8; O2SAT 95
[2024-02-12 16:44] VITALS: BP 119/69; PULSE 88; RESP 16; TEMP -17.7; TEMP 0; O2SAT 95
== END 2024-02-12 16:48 | disposition home or self-care (01) ==
PROVIDERS: Nurse Practitioner Family; Physician Assistant; Emergency Provider Emergency Medicine Emergency Medical Services; PCP Internal Medicine
DX: J22 Unspecified acute lower respiratory infection (principal); B97.4 Respiratory syncytial virus as the cause of diseases classified elsewhere; J45.909 Unspecified asthma, uncomplicated; R05.9 Cough, unspecified; Z03.818 Encounter for observation for suspected exposure to other biological agents ruled out; Z79.899 Other long term (current) drug therapy
CPT/HCPCS: 0241U; 36415; 71045; 80053; 85025; 87651; 94640; 99284; J2919; J3475

== ENCOUNTER 2024-02-16 12:37 | Emergency (ER) | payer MEDICAID, SELFPAY ==
--- NOTE | ~2024-02-16 | XR_ITS ---
EXAMINATION: XR CHEST CLINICAL INFORMATION: sob COMPARISON: 02/12/2024. TECHNIQUE: 2 views of the chest were obtained. FINDINGS: The cardiac, hilar, and mediastinal contours are normal. The lungs a demonstrate minor linear type atelectasis left base. Lungs otherwise clear. There is no pneumothorax or pleural effusion. There is no focal osseous or soft tissue abnormality. XR/XR chest 2V IMPRESSION: No active disease. Electronically signed by: Sergei Yung MD 02/16/2024 03:19 PM [facility]
[2024-02-16 12:49] VITALS: BP 143/84; PULSE 62; RESP 18; TEMP 36.6; O2SAT 98; BMI 28.3
--- NOTE | 2024-02-16 12:51 | ED.GENADULT ---
HPI - General Adult General Chief complaint: Upper Respiratory Symptoms Stated complaint: asthma Time Seen by Provider: 02/16/24 15:25 Source: patient, family and old records reviewed Mode of arrival: ambulatory Limitations: no limitations History of Present Illness ED Provider: Ronda Mattson PA-C HPI narrative: 58 yo deaf female with history of asthma, HTN, migraines, RLS who presents to the ER for evaluation of ongoing cough, wheezing, shortness of breath for the last week and a half. Patient was seen here 4 days ago and was diagnosed with RSV. She was sent home with 5 days of prednisone, albuterol inhaler. She reports the albuterol inhaler was not working properly and no medication was coming out. She has been taking [id number] cough medication with 0 relief. She has been having coughing fits and spells that have been keeping her up at night. She reports chest wall pain with coughing. No fevers or chills. She has body aches headache. Patient denies any dyspnea on exertion, difficulty breathing, nausea, vomiting, abdominal pain. MD complaint: cough Onset (ago): day(s) Location: chest Radiation: non-radiation Severity: moderate Quality: aching Pain Consistency: intermittent Relieving factors: rest Exacerbating factors: other (Coughing) Associated symptoms: chest pain, cough, headaches, malaise and shortness of breath Treatments prior to arrival: none Related Data Home Medications ?Medication ?Instructions ?Recorded ?Confirmed amitriptyline 25 mg tablet 25 mg PO BEDTIME 01/01/20 03/31/23 fluticasone propionate 50 1 spray intranasal BID 01/01/20 03/31/23 mcg/actuation nasal spray,suspension loratadine 10 mg capsule 10 mg PO DAILY 01/01/20 03/31/23 multivitamin 1 cap PO DAILY 01/01/20 03/31/23 atorvastatin 40 mg tablet 1 tab PO DAILY 03/19/21 03/31/23 losartan 100 mg tablet 1 tab PO DAILY 03/19/21 03/31/23 sertraline 100 mg tablet 1 tab PO DAILY 03/19/21 03/31/23 Previous Rx's ?Medication ?Instructions ?Recorded sodium,potassium,mag sulfates 17.5 See Rx Instructions PO .COMPLEX 12/20/22 gram-3.13 gram-1.6 gram oral soln #354 mL (Suprep Bowel Prep Kit) albuterol sulfate 90 mcg/actuation 2 puff inhalation Q4-6H PRN 02/12/24 aerosol inhaler shortness of breath or wheezing #8.5 grams benzonatate 200 mg capsule 200 mg PO TID PRN cough 5 days #15 02/12/24 caps prednisone 20 mg tablet 40 mg (2 x 20 mg) PO DAILY 5 days 02/12/24 #10 tabs albuterol sulfate 90 mcg/actuation 2 puff inhalation Q4-6H PRN 02/16/24 aerosol inhaler shortness of breath or wheezing #8.5 grams azithromycin 250 mg tablet See Rx Instructions PO .COMPLEX #6 02/16/24 (Zithromax Z-Davie) tabs hydrocodone-homatropine 5 mg-1.5 5 ml PO Q6H PRN cough #60 mL 02/16/24 mg/5 mL oral syrup (Hycodan (with homatropine)) prednisone 10 mg tablets in a dose See Taper PO DAILY #30 ea 02/16/24 pack Allergies Allergy/AdvReac Type Severity Reaction Status Date / Time tramadol AdvReac Unknown vomiting Verified 02/16/24 12:51 Seasonal Allergeries Allergy Unknown sneezing Uncoded 03/31/23 11:08 Review of Systems Review of Systems: Yes all other systems are reviewed and are negative [facility] Past Medical History Medical History (Updated 02/16/24 @ 16:11 by GAURI Oh) Tubular adenoma Family history of colon cancer Restless leg HTN (hypertension) Deaf Vitamin D deficiency Allergic rhinitis Joint pain Migraines Surgical History H/O vaginal hysterectomy Hx of varicose vein ligation and stripping Hx of colonoscopy History of nasal surgery Family History Family History Mother Colon cancer Social History Social History Household Members: None Housing: Apartment Alcohol intake: never Patient Tobacco Use Status: Never used Tobacco Advance Directives: No Advance Directives Information Provided: Yes Do you have a plan to hurt others: No Plan Current occupational status: disabled 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 Oriented X3. No acute distress. Head: normocephalic, atraumatic. Eyes: Pupils equal, round and reactive to light. ENT: Pharynx with moderate posterior pharyngeal erythema. No tonsillar swelling or exudate. Neck: Normal inspection. Neck supple. CVS: Normal heart rate and rhythm. Pulses normal. Respiratory: No respiratory distress. Breath sounds coarse throughout, bronchospastic cough. Abdomen: Soft and nontender. +BS x4 Skin: Skin warm and dry. Normal skin color. Normal skin turgor. No rashes. Extremities: No lower extremity edema. No joint swelling. Neuro/psych: Oriented X 3. awake, alert, communicating with family via lip reading Course Course Course Narrative: This is a rapid medical exam performed by Charito Norris PA-C. The patient is a 58-year-old female with a history of asthma who presents with ongoing cough cold symptoms. Patient is seen last week in the ER, tested positive for RSV. Patient has been using home inhalers without relief of symptoms, she completed the steroid taper. On exam, the patient does have faint expiratory wheezes posterior urbina, with the active bronchospasm cough. We will screen basic labs in the event the patient requires admission, a chest x-ray. I am not repeating the viral panel, we know she is RSV positive. We will order the bronchodilator protocol as well. The patient is hemodynamically stable and can return to the waiting room pending her full medical assessment. Medications Administered Discontinued Medications Generic Name Dose Route Start Last Admin Trade Name Freq PRN Reason Stop Dose Admin Albuterol/Ipratropium 3 ml 02/16/24 13:35 02/16/24 13:43 Albuterol/Iprat 2.5/0.5mg 3 Ml Ampul.Neb INHALE 02/16/24 13:36 3 ml ONCE ONE Administration Guaifenesin/Codeine Phosphate 5 ml 02/16/24 16:09 02/16/24 16:46 Guaifen/Codeine Sf 200/20/10ml 10 Ml Liquid PO 02/16/24 16:10 5 ml NOW STA Administration Medical Decision Making Medical Decision Making [facility] Narrative: 58-year-old female with history of asthma and recently diagnosed RSV presents to the ER for evaluation of ongoing cough, shortness of breath, wheezing. She has been unable to use her albuterol inhaler due to malfunction per patient's daughter. On arrival to the ER she is saturating well on room air, 96-98%. She is in no respiratory distress. She is hemodynamically stable and afebrile. Lung sounds with bronchospasm, coarseness and some wheezing. She was given bronchodilator protocol with improvement in her symptoms we discussed potential admission due to abnormal breath sounds and ongoing symptoms despite steroids at home however she was not optimally treated, not getting bronchodilators. Patient's daughter is a SENIOR PRODUCTION SUPERVISOR and feels comfortable taking her home, she was given strict return precautions. Will prescribe another albuterol inhaler, prednisone taper, azithromycin for anti-inflammatory effects in the lungs. Encouraged close outpatient follow-up and return if new or worsening symptoms. Stable for DC home. Differential Diagnosis Differential Diagnoses: The differential diagnosis associated with the presentation includes strep, covid, flu, rsv, other viral syndrome, bronchitis, pneumonia, asthma exacerbation, doubt ACS, PE, pericarditis Admission/Observation Consideration of admission/observation: Escalation of care including admission/observation considered Lab Data [facility] Lab Attestation statement: I reviewed the patient's lab results. No leukocytosis, mild anemia 02/16/24 13:17 02/16/24 13:17 Labs: Lab Results 02/16/24 Range/Units 13:17 WBC 10.1 (4.8-10.8) X10*3/uL RBC 4.00 L (4.20-5.50) X10*6/uL Hgb 11.7 L (12.0-16.0) g/dl Hct 36.7 L (37.0-47.0) % MCV 91.8 (80.0-98.0) fL MCH 29.3 (27.0-33.0) pg MCHC 31.9 (31.0-35.0) g/dl RDW 14.1 (11.0-16.0) % Plt Count 221 (160-400) X10*3/uL MPV 9.8 (9.4-12.3) fL Immature Gran % (Auto) 0.6 H (0.0-0.4) % Neut % (Auto) 54.9 (45-73) % Lymph % (Auto) 34.8 (20-40) % Tyrrell % (Auto) 8.4 (2-11) % Eos % (Auto) 1.0 (0-4) % Baso % (Auto) 0.3 (0-2) % Lymph # (Auto) 3.5 (1.2-4.9) X10*3/uL Tyrrell # (Auto) 0.9 (0.1-1.2) X10*3/uL Eos # (Auto) 0.1 (0.0-0.4) X10*3/uL Baso # (Auto) 0.0 (0.0-0.2) X10*3/uL Abs Immat Gran (auto) 0.06 H (0.00-0.03) X10*3/uL Absolute Neuts (auto) 5.6 (2.0-8.3) x10*3/uL Absolute Nucleated RBC 0.000 (0.0-0.012) X10*3/uL Nucleated RBC % (auto) 0.0 (0.0-0.2) /100WBC Sodium 145 (135-145) mmol/L Potassium 3.7 (3.3-5.1) mmol/L Chloride 109 H (96-108) mmol/L Carbon Dioxide 27 (22-29) mmol/L Anion Gap 13 (12-20) BUN 16 (9-16) mg/dL Creatinine 0.85 (0.5-1.4) mg/dL Estim Creat Clear Calc 75.8 Estimated GFR > 60 Random Glucose 135 H (60-115) mg/dL Calcium 9.7 (8.4-10.2) mg/dL Magnesium 2.1 (1.6-2.6) mg/dL Independent Interpretation I performed an independent interpretation of an: Plain X-Ray Interpretation: No focal infiltrate or effusion Radiology Impression Discussion of test interpretation with radiology: I have reviewed the radiologist's reading. Independent Historian Clinical information obtained from an independent historian. History obtained from or confirmed by: Other (Adult daughter at the bedside who is translating) External Record Review External record reviewed: Outpatient record, Prior outpatient labs and Prior outpatient radiology Tests considered The following testing was considered but not selected: EKG considered, low suspicion for cardiac etiology Prescription Management I considered prescription management with: Pain Medication, Antibiotic and Other (Antitussive, prednisone) Chronic Conditions Patient?s care impacted by: Other (Asthma) Critical Care Time Critical Care Time Critical Care Time: No Discharge Plan Discharge Clinical Impression: Bronchitis Patient Disposition: Home, Self-Care Instructions: Acute Bronchitis (ED) Additional Instructions: Start the prescribed prednisone taper today, complete the entire course. Take the prescribed antibiotics as directed, complete the entire course and do not miss any doses. Use the prescribed cough medication as needed for coughing. This has a narcotic and that they will make you sleepy, do not drive after taking this medication. Recommend using a cool-mist humidifier in your bedroom. Use your albuterol inhaler every 2-4 hours as needed for shortness of breath and wheezing. Follow up with your doctor. If you develop new or worsening symptoms call 911 or come back to the ER for further evaluation. Prescriptions: New azithromycin [Zithromax Z-Davie] 250 mg tablet See Rx Instructions .ROUTE .COMPLEX Qty: 6 0RF Rx Instructions: take 500 mg today (day 1), then 250 mg for 4 days (days 2-5) prednisone 10 mg tablets,dose pack See Taper PO DAILY Qty: 30 0RF Taper: Prednisone 40 mg daily for 3 Days and 0 Hour 30 mg daily for 3 Days and 0 Hour 20 mg daily for 3 Days and 0 Hour 10 mg daily for 3 Days and 0 Hour Rx Instructions: 40 mg Daily x3 days, 30 mg daily x3 days, 20 mg daily x3 days, 10 mg daily x3 days albuterol sulfate 90 mcg/actuation HFA aerosol inhaler 2 puff inhalation Q4-6H PRN (Reason: shortness of breath or wheezing) Qty: 8.5 0RF hydrocodone-homatropine [Hycodan (with homatropine)] 5-1.5 mg/5 mL syrup 5 ml PO Q6H PRN (Reason: cough) Qty: 60 0RF Rx Instructions: Partial Fill upon patient request. No Action atorvastatin 40 mg tablet 1 tab PO DAILY sertraline 100 mg tablet 1 tab PO DAILY losartan 100 mg tablet 1 tab PO DAILY albuterol sulfate 90 mcg/actuation HFA aerosol inhaler 2 puff inhalation Q4-6H PRN (Reason: shortness of breath or wheezing) Qty: 8.5 0RF prednisone 20 mg tablet 40 mg PO DAILY 5 Days Qty: 10 0RF benzonatate 200 mg capsule 200 mg PO TID PRN (Reason: cough) 5 Days Qty: 15 0RF multivitamin Capsule 1 cap PO DAILY fluticasone propionate 50 mcg/actuation spray,suspension 1 spray intranasal BID Rx Instructions: administer into each nostril loratadine 10 mg capsule 10 mg PO DAILY amitriptyline 25 mg tablet 25 mg PO BEDTIME sodium,potassium,mag sulfates [Suprep Bowel Prep Kit] 17.5-3.13-1.6 gram recon soln See Rx Instructions PO .COMPLEX Qty: 354 0RF Rx Instructions: DILUTE; drink full amount early evening before AND next morning at least 2 hr before procedure; follow w 960 mL water PO Referrals: Darlin Escudero MD [Primary Care Provider] - Interventions: ED Discharge Assessment Last Done: 02/16/24 16:48 Discharge Date/Time: 02/16/24 16:49 Print Language: Portuguese
[2024-02-16 13:20] LABS: MANUAL DIFF FLAG NO
[2024-02-16 13:23] LABS: Basophils Percent Auto 0.3 % (0-2); Eosinophils Absolute Auto 0.1 X10*3/uL (0.0-0.4); Hematocrit 36.7 % (37.0-47.0); Hemoglobin 11.7 g/dl (12.0-16.0); Imm Gran Abs Auto 0.06 X10*3/uL (0.00-0.03); Imm Gran Pct Auto 0.6 % (0.0-0.4); Lymphocytes Absolute Auto 3.5 X10*3/uL (1.2-4.9); Lymphocytes Percent Auto 34.8 % (20-40); Mean Corpuscular HGB Conc 31.9 g/dl (31.0-35.0); Mean Corpuscular Hemoglobin 29.3 pg (27.0-33.0); Mean Corpuscular Volume 91.8 fL (80.0-98.0); Mean Platelet Volume 9.8 fL (9.4-12.3); Monocytes Absolute Auto 0.9 X10*3/uL (0.1-1.2); Monocytes Percent Auto 8.4 % (2-11); Neutrophils Absolute Auto 5.6 x10*3/uL (2.0-8.3); Neutrophils Percent Auto 54.9 % (45-73); Platelet Count 221 X10*3/uL (160-400); Red Cell Distribution Width 14.1 % (11.0-16.0); White Blood Count 10.1 X10*3/uL (4.8-10.8)
[2024-02-16 13:37] VITALS: PULSE 73; RESP 20; O2SAT 97
[2024-02-16 13:38] LABS: Anion Gap 13 (12-20); Blood Urea Nitrogen 16 mg/dL (9-16); Calcium 9.7 mg/dL (8.4-10.2); Carbon Dioxide 27 mmol/L (22-29); Chloride 109 mmol/L (96-108); Creatinine Clr Calc Pharmacy 75.8; Estimated Glomerular Filt Rate > 60; Glucose Random 135 mg/dL (60-115); Magnesium 2.1 mg/dL (1.6-2.6); Potassium 3.7 mmol/L (3.3-5.1); Sodium 145 mmol/L (135-145)
[2024-02-16] MEDS: Albuterol/Iprat 2.5/0.5MG 3 ML AMPUL.NEB INHALE (13:43)
[2024-02-16] MEDS: guaiFEN/Codeine SF 200/20/10ML 10 ML LIQUID 5 ML PO (16:46)
[2024-02-16 16:48] VITALS: BP 130/69; PULSE 67; RESP 16; TEMP -17.7; TEMP 0; O2SAT 96
== END 2024-02-16 16:49 | disposition home or self-care (01) ==
PROVIDERS: Physician Assistant Medical; Emergency Provider Student in an Organized Health Care Education/Training Program; PCP Internal Medicine
DX: J40 Bronchitis, not specified as acute or chronic (principal); R05.9 Cough, unspecified; R06.02 Shortness of breath; I10 Essential (primary) hypertension; Z79.899 Other long term (current) drug therapy
CPT/HCPCS: 36415; 71046; 80048; 83735; 85025; 94640; 99283; 99284

== ENCOUNTER → 2024-02-16 12:48 | Outpatient (BNV) | payer MEDICAID, SELFPAY | PROVIDERS: Emergency Provider Student in an Organized Health Care Education/Training Program; PCP Internal Medicine; Visit Provider Radiology Diagnostic Radiology | DX: R06.02 Shortness of breath (principal) | CPT/HCPCS: 71046 ==

== ENCOUNTER 2024-07-09 09:04 | Outpatient (REF) | payer MEDICAID, SELFPAY ==
[2024-07-09 10:33] LABS: Estimated Average Glucose 143 mg/dL; Hemoglobin A1C 162.9813 umol/L; Hemoglobin A1c % 6.6 % (<6.0); Total Hemoglobin (HGBA1C) 3367.6276 umol/L
[2024-07-09 11:26] LABS: Alanine Aminotransferase 48 U/L (0-31); Alkaline Phosphatase 95 U/L (39-117); Anion Gap 11 (12-20); Aspartate Amino Transferase 44 U/L (5-31); Bilirubin Total 0.4 mg/dL (0.0-1.0); Blood Urea Nitrogen 17 mg/dL (9-16); Calcium 9.4 mg/dL (8.4-10.2); Carbon Dioxide 28 mmol/L (22-29); Chloride 107 mmol/L (96-108); Estimated Glomerular Filt Rate > 60; Glucose Random 125 mg/dL (60-115); Potassium 4.2 mmol/L (3.3-5.1); Sodium 142 mmol/L (135-145); Total Protein 6.9 g/dL (6.5-8.0)
== END 2024-07-09 09:05 | disposition home or self-care (01) ==
LOC: HO.LAB 09:04
PROVIDERS: PCP Internal Medicine; Visit Provider Internal Medicine
DX: E11.9 Type 2 diabetes mellitus without complications (principal); E78.00 Pure hypercholesterolemia, unspecified; F32.5 Major depressive disorder, single episode, in full remission; I10 Essential (primary) hypertension
CPT/HCPCS: 36415; 80053; 83036

== ENCOUNTER 2024-07-12 14:38 | Outpatient (AMB) | payer MEDICAID, SELFPAY ==
--- NOTE | 2024-07-12 15:00 | MHC.OFFVIS ---
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 No complaints. Last Pap/HPV was negative in 12/22 the patient is status post vaginal hysterectomy for benign disease with no history of abnormal Pap smears Last Mammogram was BI-RADS 01/28 Last Colonoscopy was in 03/30, the recommendation was to repeat in 10 years PFS Medical History Tubular adenoma Family history of colon cancer Restless leg HTN (hypertension) Deaf Vitamin D deficiency Allergic rhinitis Joint pain Migraines Surgical History H/O vaginal hysterectomy Hx of varicose vein ligation and stripping Hx of colonoscopy History of nasal surgery Family History Mother Colon cancer Social History Household Members: None Housing: Apartment Alcohol intake: never Patient Tobacco Use Status: Never used Tobacco Current occupational status: disabled 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 Sexual orientation: Straight/Heterosexual Gender identity: Female Female Reproductive History Menstrual Age of Menarche: 11 Menopause type: surgical Date of Mammogram: 01/11/24 Review of Systems Const All systems reviewed & are unremarkable except as noted in HPI and below Card Reports as per HPI and Reports no additional complaints Resp Reports as per HPI and Reports no additional complaints GI Reports as per HPI and Reports no additional complaints Reports as per HPI Physical Exam Vital Signs: Last Vital Signs BP 124/76 07/12/24 15:07 BMI result Body Mass Index 29.5 Const General: cooperative, healthy appearing and comfortable General: Yes bladder normal to palpation External Female Exam: No lesion Speculum Exam - Vagina: normal appearance of the vagina, normal vaginal discharge and not erythematous Speculum Exam - Cervix: Cervix absent Bimanual exam- vagina & uterus: bladder normal to palpation and uterus absent Bimanual Exam- Adnexa, other: Other (No masses detected) Assessment & Plan Assessment & Plan (1) Well woman exam: Code(s): Z01.419 - Encounter for gynecological examination (general) (routine) without abnormal findings Category: Medical Plan: Co testing not indicated the patient is status post hysterectomy for benign disease with no history of abnormal Pap smears. Counseled the patient about the recommended dietary allowance of 1200 mg of Calcium & 600 IU of vitamin D. Instructions given the patient to schedule next screening Mammogram in 01/29. The patient was instructed to perform monthly self-breast exams and schedule annual exam in a year. All questions answered and the patient verbalized understanding. Coding Level of Care Code Est Pt Prev Care 40-64y(17042) Diagnoses Well woman exam Z01.419
[2024-07-12 15:07] VITALS: BP 124/76; BMI 29.5
== END 2024-07-12 15:29 | disposition home or self-care (01) ==
LOC: HO.HWS 14:38
PROVIDERS: PCP Internal Medicine; Visit Provider Obstetrics & Gynecology
DX: Z01.419 Encounter for gynecological examination (general) (routine) without abnormal findings (principal)
CPT/HCPCS: 99396; 99459

== ENCOUNTER → 2024-07-12 14:38 | Outpatient (BNVA) | payer MEDICAID, SELFPAY | PROVIDERS: PCP Internal Medicine; Visit Provider Obstetrics & Gynecology | DX: Z01.419 Encounter for gynecological examination (general) (routine) without abnormal findings (principal) | CPT/HCPCS: 99396; 99459 ==

== ENCOUNTER 2024-09-12 14:42 | Outpatient (AMB) | payer MEDICAID, SELFPAY ==
[2024-09-12 15:17] VITALS: BMI 29.5
--- NOTE | 2024-09-12 15:17 | MHC.OFFVIS ---
Vital Signs 09/12/24 15:17 Height 5 ft 6 in Weight 183 lb BMI 29.5 Intake Visit Reasons: New prob-Lt hand ganglion cyst Intake Note: Leslie is a 58 year old right hand dominant female who presents today for a new problem visit for her left hand ganglion cyst. States she noticed a lump increasing in size about 1 year ago and states it is very uncomfortable. She has pain when pressure is applied on the cyst. Denies any previous treatment, and previous injury that. Denies numbness or tingling. She would like to discuss surgical intervention. Allergies tramadol Adverse Reaction (Unknown, Verified 09/12/24 15:23) vomiting Seasonal Allergeries Allergy (Unknown, Uncoded 09/12/24 15:23) sneezing HPI HPI New prob-Lt hand ganglion cyst: Details: Leslie is a 58 year old right hand dominant Mauritian speaking deaf woman who presents for a left hand mass. She is here with her daughter who acts as an production inspector. She complains of a mass on the dorsal aspect of her left thumb, near the basal joint. She says this has been present for ~1 year, has changed in size, and is tender to palpation. She denies any known injury. She denies any numbness, tingling, or injury. She denies any prior treatment options. SHe would like to discuss surgery. 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 Sexual orientation: Straight/Heterosexual Gender identity: Female Female Reproductive History Menstrual Age of Menarche: 11 Review of Systems Const All systems reviewed & are unremarkable except as noted in HPI and below Physical Exam Vital Signs: BMI result Body Mass Index 29.5 Const General: cooperative, healthy appearing and no acute distress Orientation/consciousness: patient oriented x3 HEENT Head: Yes normocephalic and Yes atraumatic Eyes EOM: EOMs intact bilaterally Resp Effort & Inspection: normal respiratory effort and able to speak in complete sentences Cardio Jugular venous distension: no JVD Skin General skin exam: turgor normal Rashes: no rashes Neuro General: patient oriented x3 Extrem Other: Evaluation of Left Upper Extremity: The patient is alert, oriented, and in no acute distress Neuro: Median, Ulnar, Radial nerves motor and sensory intact and sensation is normal to the tips of all digits Vascular: Cap refill brisk ROM: She can make a fist and extend all her digits No locking or catching Skin: No lacerations or abrasions. General: No Ecchymosis. No Erythema or evidence of infection. There is a mass on the dorsal aspect of her left basal joint, in line with EPL tendon, possible association with EPL tendon vs basal joint. This measures ~1.5cm in diameter & is mildly TTP. Mobile under the skin. Possible cystic versus solid mass. Psych Appearance: grossly normal Affect: normal affect Attitude: cooperative Assessment & Plan Assessment & Plan (1) Mass of finger of left hand: Comment: Thumb Code(s): R22.32 - Localized swelling, mass and lump, left upper limb Category: Medical (2) Deaf: Comment: Prefers Mauritian Sign Language Code(s): H91.90 - Unspecified hearing loss, unspecified ear Category: Medical Plan Assessment & Plan: 1. Left dorsal thumb mass Measuring ~1.5cm in diameter Dorsal to basal joint, possible association with EPL tendon. I educated her about this condition I discussed operative and non-operative treatment options The patient would like to proceed with surgery The risks and benefits of operative treatment were discussed with the patient and the patient wishes to proceed with surgery. These risks include, but are not limited to risk of damage to blood vessels, nerves, tendons, infection, recurrence, incomplete relief of preoperative symptoms, persistent pain, possible need for further surgery and the risks associated with regional blocks and anesthesia. The plan is to take the patient to the operating room sometime in the next few weeks for the following procedures: 1. Left thumb mass excisional biopsy, under general All of the preoperative paperwork including the consent was reviewed today. All the patient's questions were answered. The patient understands that they will be contacted by our ditch cleaner soon to schedule this procedure She denies Diabetes, blood thinners, heart, lung, kidney issues. Her daughter says she is Diabetic, and this is managed with Metformin. Her most recent HgA1c was 6.6% on 07/09/24. She is hard of hearing and relatively nonverbal. She can read lips in Mauritian with her daughter. Her daughter will be present on day of surgery to assist. Scribed for Jaimee Gleason MD by Romero Bernabe, mobile paramedical examiner, on 09/12/24 at 4:00 PM, EST. Coding Level of Care Code Est Pt Level 4 (82786) Diagnoses Mass of finger of left hand R22.32 Deaf H91.90
== END 2024-09-12 17:17 | disposition home or self-care (01) ==
LOC: HO.HOS 14:43
PROVIDERS: PCP Internal Medicine; Visit Provider Orthopaedic Surgery
DX: R22.32 Localized swelling, mass and lump, left upper limb (principal); H91.90 Unspecified hearing loss, unspecified ear
CPT/HCPCS: 99214

== ENCOUNTER → 2024-09-12 14:42 | Outpatient (BNVA) | payer MEDICAID, SELFPAY | PROVIDERS: PCP Internal Medicine; Visit Provider Orthopaedic Surgery | DX: R22.32 Localized swelling, mass and lump, left upper limb (principal) | CPT/HCPCS: 99212 ==

== ENCOUNTER 2024-10-15 08:37 | Outpatient (REF) | payer MEDICAID, SELFPAY ==
[2024-10-15 09:03] LABS: MANUAL DIFF FLAG NO
[2024-10-15 09:36] LABS: Hematocrit 38.5 % (37.0-47.0); Hemoglobin 12.6 g/dl (12.0-16.0); Imm Gran Abs Auto 0.02 X10*3/uL (0.00-0.03); Imm Gran Pct Auto 0.3 % (0.0-0.4); Lymphocytes Absolute Auto 2.2 X10*3/uL (1.2-4.9); Mean Corpuscular HGB Conc 32.7 g/dl (31.0-35.0); Mean Corpuscular Hemoglobin 29.4 pg (27.0-33.0); Mean Corpuscular Volume 89.7 fL (80.0-98.0); NRBC Abs Auto 0.000 X10*3/uL (0.0-0.012); NRBC Pct Auto 0.0 /100WBC (0.0-0.2); Platelet Count 200 X10*3/uL (160-400); Red Blood Count 4.29 X10*6/uL (4.20-5.50); White Blood Count 6.6 X10*3/uL (4.8-10.8)
[2024-10-15 10:06] LABS: Hemoglobin A1C 167.3812 umol/L; Total Hemoglobin (HGBA1C) 3388.4607 umol/L
[2024-10-15 10:22] LABS: Alanine Aminotransferase 42 U/L (0-31); Albumin Level 4.2 g/dL (3.5-5.0); Alkaline Phosphatase 110 U/L (39-117); Anion Gap 10 (12-20); Aspartate Amino Transferase 48 U/L (5-31); Blood Urea Nitrogen 18 mg/dL (9-16); Calcium 9.5 mg/dL (8.4-10.2); Carbon Dioxide 30 mmol/L (22-29); Chloride 106 mmol/L (96-108); Cholesterol 127 mg/dL (<200); Estimated Glomerular Filt Rate > 60; HDL Cholesterol 33 mg/dL (>40); Potassium 3.5 mmol/L (3.3-5.1); Sodium 142 mmol/L (135-145); Total Protein 7.2 g/dL (6.5-8.0); Triglycerides 136 mg/dL (<150)
[2024-10-15 10:34] LABS: HBS Num1 0.00 mIU/mL (0-7.99); HBc Num1 0.06 S/CO (0.00-0.79); HBsAGNum1 0.40 S/CO (0.00-0.99); Hepatitis B Surface Antigen Negative (Negative); ~Hepatitis B Surface Antibody NONREACTIVE (Nonreactive)
[2024-10-15 10:39] LABS: Thyroid Stimulating Hormone 1.53 uIU/mL (0.32-4.0)
[2024-10-15 11:06] LABS: Microalbum/Creatinine Ratio Ur 3.4 ug/mg cr (<30)
[2024-10-16 16:18] LABS: HCV RNA PCR Qn <1.18 NOT DETECTED Log IU/mL (NOT DETECTED); HCV RNA PCR Qn <15 NOT DETECTED IU/mL (NOT DETECTED)
== END 2024-10-15 08:38 | disposition home or self-care (01) ==
LOC: HO.LAB 08:37
PROVIDERS: PCP Internal Medicine; Visit Provider Internal Medicine
DX: Z11.59 Encounter for screening for other viral diseases (principal); E11.9 Type 2 diabetes mellitus without complications; E78.00 Pure hypercholesterolemia, unspecified; F32.5 Major depressive disorder, single episode, in full remission; K59.00 Constipation, unspecified; M67.432 Ganglion, left wrist; R74.01 Elevation of levels of liver transaminase levels
CPT/HCPCS: 36415; 80053; 80061; 82043; 82570; 83036; 84443; 85025; 86704; 86706; 87340; 87522

== ENCOUNTER 2025-01-14 08:23 | Outpatient (REF) | payer MEDICAID, SELFPAY ==
[2025-01-14 09:08] LABS: Hemoglobin A1C 123.5812 umol/L
[2025-01-14 09:25] LABS: Alanine Aminotransferase 64 U/L (0-31); Albumin Level 4.6 g/dL (3.5-5.0); Alkaline Phosphatase 121 U/L (39-117); Anion Gap 12 (12-20); Aspartate Amino Transferase 68 U/L (5-31); Blood Urea Nitrogen 17 mg/dL (9-16); Calcium 10.2 mg/dL (8.4-10.2); Carbon Dioxide 28 mmol/L (22-29); Chloride 104 mmol/L (96-108); Estimated Glomerular Filt Rate > 60; Potassium 4.3 mmol/L (3.3-5.1); Sodium 140 mmol/L (135-145); Total Protein 7.6 g/dL (6.5-8.0)
== END 2025-01-14 08:24 | disposition home or self-care (01) ==
LOC: HO.LAB 08:23
PROVIDERS: PCP Internal Medicine; Visit Provider Internal Medicine
DX: Z00.00 Encounter for general adult medical examination without abnormal findings (principal); E11.9 Type 2 diabetes mellitus without complications; E78.00 Pure hypercholesterolemia, unspecified; M25.572 Pain in left ankle and joints of left foot; M67.432 Ganglion, left wrist; R74.01 Elevation of levels of liver transaminase levels
CPT/HCPCS: 36415; 80053; 83036